=== PATIENT | male | born 1940 | race African-American/Black ===

== ENCOUNTER 2016-07-28 21:17 | Inpatient (IN) | payer MEDICARE, MEDICAID ==
[~2016-07-28] VITALS: Ht 188 cm; Wt 55.8 kg
[2016-07-28] MEDS ORDERED: IPRATROPIUM BROMIDE (0.02%) 0.5MG/2.5ML NEB HHN STA (22:05)
[2016-07-28] MEDS ORDERED: ONDANSETRON HCL 4MG/2ML VIAL IV STA (22:05)
[2016-07-28] MEDS ORDERED: MORPHINE SULFATE 4 MG/ML CPJ (NOT FOR IM USE) IV STA (22:05)
[2016-07-28] MEDS ORDERED: ALBUTEROL (0.083%) 2.5MG/3ML NEB HHN STA (22:05)
[2016-07-28] MEDS ORDERED: METHYLPREDNISOLONE SOD SUCC 125 MG/2 ML VIAL IV STA (22:05)
[2016-07-28 22:41] LABS: BG BASE EXCESS -1.2 mmol/L (-2.0-2.0); BG CARBOXYHEMOGLOBIN 2.9 % (0.5-1.5); BG DEOXYHEMOGLOBIN 6.4 % (0.0-5.0); BG FRACTION INSPIRED OXYGEN 28; BG HCO3 ACT 24.6 mmol/L (22.0-26.0); BG METHEMOGLOBIN 0.3 % (0.0-1.5); BG OXYGEN SATURATION 93.4 % (92.0-98.5); BG OXYHEMOGLOBIN 90.4 % (94.0-97.0); BG PH 7.355 (7.350-7.450); BG PO2 73.2 mmHg (75.0-100.0); BG SAMPLE SITE RIGHT RADIAL; BG TOTAL HEMOGLOBIN 13.7 g/dL (12.0-18.0); BG VENT MODE NASAL CANNULA
[2016-07-28 23:19] LABS: CLARITY URINE CLEAR (CLEAR); COLOR URINE YELLOW (YELLOW); GLUCOSE URINE NEGATIVE (NEGATIVE); KETONES URINE NEGATIVE (NEGATIVE); LEUKOCYTE ESTERASE URINE NEGATIVE (NEGATIVE); NITRITE URINE NEGATIVE (NEGATIVE); OCCULT BLOOD URINE NEGATIVE (NEGATIVE); PROTEIN URINE NEGATIVE (NEGATIVE); SPECIFIC GRAVITY URINE 1.016 (1.005-1.030)
[2016-07-28 23:26] LABS: BASOPHILS % 0.8 % (0.0-2.0); EOSINOPHILS % 6.5 % (0.0-5.0); HEMATOCRIT. 40.7 % (42.0-52.0); HEMOGLOBIN. 13.5 g/dL (14.0-18.0); LYMPHOCYTES % 38.2 % (20.0-50.0); MEAN CORPUSCULAR HEMOGLOBIN 30.9 pg (28.0-32.0); MEAN CORPUSCULAR HGB CONC 33.2 g/dL (31.0-37.0); MEAN CORPUSCULAR VOLUME 93.3 fL (80.0-94.0); MEAN PLATELET VOLUME 7.8 fl (7.4-10.4); NEUTROPHILS % 46.5 % (40.0-76.0); PLATELET 289 x1000/uL (130-400); RED BLOOD CELL COUNT 4.36 mill/uL (4.7-6.1); RED CELL DISTRIBUTION WIDTH 14.7 % (11.6-14.6); WHITE BLOOD COUNT 7.3 x1000/uL (4.5-11.0)
[2016-07-28 23:29] LABS: INR 1.1; PARTIAL THROMBOPLASTIN TIME 30.4 sec (24.0-34.0)
[2016-07-28 23:38] LABS: ALANINE AMINOTRANSFERASE 82 IU/L (13-61); ANION GAP 14; CALCIUM 8.3 mg/dL (8.5-10.1); CARBON DIOXIDE 29 mEq/L (21-32); CHLORIDE 104 mEq/L (98-107); CREATINE KINASE 114 IU/L (39-308); INDEX HEMOLYSI 2 (1-3); INDEX ICTERIC 1 (1-4); INDEX LIPEMIC 1 (1-3); LIPASE 169 IU/L (73-393); NT PRO B-TYPE NATRIURETIC PEP 115 pg/mL (5-125); TROPONIN I 0.15 ng/mL (0.00-0.04); UREA NITROGEN BLOOD 15 mg/dL (7-21); eGFR > 60 mL/min (>60)
[2016-07-29] MEDS ORDERED: ACETAMINOPHEN 325MG TABLET PO PRN
[2016-07-29] MEDS ORDERED: CLONIDINE 0.1MG TABLET PO PRN
[2016-07-29] MEDS ORDERED: ONDANSETRON HCL 4MG/2ML VIAL IV PRN
[2016-07-29] MEDS ORDERED: MAGNESIUM/ALUMINUM HYDROXIDE/SIMETHICONE 30ML UDC PO PRN
[2016-07-29] MEDS ORDERED: IPRATROPIUM/ALBUTEROL 0.5-3(2.5)MG/3ML NEB INH PRN
[2016-07-29 02:35] VITALS: BP 105/76
[2016-07-29] MEDS: HYDROMORPHONE HCL/PF 2MG/ML CPJ IV PRN ×3 (03:54→20:33)
[2016-07-29] MEDS ORDERED: DOCU-138 PO (04:32)
[2016-07-29] MEDS ORDERED: FOLI-43 PO (04:32)
[2016-07-29] MEDS ORDERED: LEVE500T19 PO (04:32)
[2016-07-29] MEDS ORDERED: OMEP20CA10 PO (04:32)
[2016-07-29] MEDS ORDERED: AMLO5TAB4 PO (04:32)
[2016-07-29] MEDS ORDERED: ASPI-864 PO (04:32)
[2016-07-29] MEDS ORDERED: PHEN100C12 PO (04:32)
[2016-07-29] MEDS ORDERED: TRAZ-129 PO (04:32)
[2016-07-29 05:04] VITALS: BP 100/73
[2016-07-29] MEDS: SODIUM CHLORIDE 0.9% INJ 3ML FLUSH IVF SCH ×3 (06:24→22:58)
[2016-07-29 08:00] VITALS: BP 118/78
[2016-07-29] MEDS: ENOXAPARIN 40MG/0.4ML SYR SUBCUT SCH (08:30)
[2016-07-29 12:00] VITALS: BP 103/73
[2016-07-29] MEDS: AMLODIPINE 5MG TABLET PO SCH ×2 (12:00→20:29)
[2016-07-29] MEDS: OMEPRAZOLE 20MG CAPSULE EXTENDED RELEASE PO SCH (12:29)
[2016-07-29] MEDS: FOLIC ACID 1MG TABLET PO SCH (12:29)
[2016-07-29] MEDS: ASPIRIN 81MG EC TABLET PO SCH (12:29)
[2016-07-29] MEDS: PHENYTOIN SODIUM EXTENDED 100MG CAPSULE PO SCH ×2 (12:29→16:09)
[2016-07-29 13:18] LABS: BASOPHILS % 0.6 % (0.0-2.0); EOSINOPHILS % 0.1 % (0.0-5.0); HEMATOCRIT. 35.4 % (42.0-52.0); HEMOGLOBIN. 11.8 g/dL (14.0-18.0); LYMPHOCYTES % 26.4 % (20.0-50.0); MEAN CORPUSCULAR HEMOGLOBIN 31.1 pg (28.0-32.0); MEAN CORPUSCULAR HGB CONC 33.4 g/dL (31.0-37.0); MEAN CORPUSCULAR VOLUME 93.2 fL (80.0-94.0); MEAN PLATELET VOLUME 7.9 fl (7.4-10.4); MONOCYTES % 10.2 % (2.0-8.0); NEUTROPHILS % 62.7 % (40.0-76.0); PLATELET 270 x1000/uL (130-400); RED BLOOD CELL COUNT 3.79 mill/uL (4.7-6.1); RED CELL DISTRIBUTION WIDTH 14.4 % (11.6-14.6)
[2016-07-29 13:26] LABS: CHLORIDE 102 mEq/L (98-107); INDEX HEMOLYSI 1 (1-3); INDEX ICTERIC 1 (1-4); INDEX LIPEMIC 1 (1-3)
[2016-07-29 13:32] LABS: ANION GAP 12; CARBON DIOXIDE 30 mEq/L (21-32); UREA NITROGEN BLOOD 17 mg/dL (7-21); eGFR > 60 mL/min (>60)
[2016-07-29] MEDS: LEVOFLOXACIN 500MG PREMIX 100 ML IV SCH (13:45)
[2016-07-29] MEDS ORDERED: LIDOCAINE HCL/PF 1% 2ML VIAL ONE (14:30)
[2016-07-29 16:00] VITALS: BP 101/70
[2016-07-29] MEDS: TRAZODONE HCL 50MG TABLET PO SCH (16:09)
[2016-07-29] MEDS: DOCUSATE SODIUM 100MG CAPSULE PO SCH (16:09)
[2016-07-29] MEDS: LEVETIRACETAM 500MG TABLET PO SCH (16:09)
[2016-07-29] MEDS: METHYLPREDNISOLONE SOD SUCC 40 MG/ML VIAL IV SCH (18:50)
[2016-07-29] MEDS: DIPHENHYDRAMINE 50MG/ML VIAL IV PRN (18:53)
[2016-07-29 20:00] VITALS: BP 113/73
[2016-07-29] MEDS: IPRATROPIUM/ALBUTEROL 0.5-3(2.5)MG/3ML NEB HHN SCH (20:03)
[2016-07-30] VITALS: BP 101/63
[2016-07-30] MEDS: IPRATROPIUM/ALBUTEROL 0.5-3(2.5)MG/3ML NEB HHN SCH ×6 (00:06→20:38)
[2016-07-30] MEDS: METHYLPREDNISOLONE SOD SUCC 40 MG/ML VIAL IV SCH ×3 (01:56→21:24)
[2016-07-30 04:00] VITALS: BP 104/74
[2016-07-30] MEDS: OMEPRAZOLE 20MG CAPSULE EXTENDED RELEASE PO SCH (06:14)
[2016-07-30] MEDS: SODIUM CHLORIDE 0.9% INJ 3ML FLUSH IVF SCH ×3 (06:15→21:23)
[2016-07-30] MEDS: HYDROMORPHONE HCL/PF 2MG/ML CPJ IV PRN ×3 (06:21→15:44)
[2016-07-30 06:48] LABS: BASOPHILS % 0.2 % (0.0-2.0); HEMATOCRIT. 36.8 % (42.0-52.0); HEMOGLOBIN. 12.3 g/dL (14.0-18.0); LYMPHOCYTES % 11.4 % (20.0-50.0); MEAN CORPUSCULAR HEMOGLOBIN 30.5 pg (28.0-32.0); MEAN CORPUSCULAR HGB CONC 33.3 g/dL (31.0-37.0); MEAN CORPUSCULAR VOLUME 91.7 fL (80.0-94.0); MONOCYTES % 1.7 % (2.0-8.0); NEUTROPHILS % 86.7 % (40.0-76.0); PLATELET 283 x1000/uL (130-400); RED BLOOD CELL COUNT 4.02 mill/uL (4.7-6.1); RED CELL DISTRIBUTION WIDTH 14.3 % (11.6-14.6); WHITE BLOOD COUNT 6.3 x1000/uL (4.5-11.0)
[2016-07-30 08:00] VITALS: BP 100/70
[2016-07-30] MEDS: ASPIRIN 81MG EC TABLET PO SCH (08:17)
[2016-07-30] MEDS: DOCUSATE SODIUM 100MG CAPSULE PO SCH ×2 (08:17→16:08)
[2016-07-30] MEDS: PHENYTOIN SODIUM EXTENDED 100MG CAPSULE PO SCH ×3 (08:17→16:08)
[2016-07-30] MEDS: LEVETIRACETAM 500MG TABLET PO SCH ×2 (08:17→16:08)
[2016-07-30] MEDS: FOLIC ACID 1MG TABLET PO SCH (08:17)
[2016-07-30] MEDS: ENOXAPARIN 40MG/0.4ML SYR SUBCUT SCH (08:17)
[2016-07-30] MEDS: AMLODIPINE 5MG TABLET PO SCH ×2 (08:18→21:00)
[2016-07-30 08:26] LABS: ANION GAP 13; CALCIUM 8.3 mg/dL (8.5-10.1); CARBON DIOXIDE 29 mEq/L (21-32); CHLORIDE 100 mEq/L (98-107); INDEX HEMOLYSI 1 (1-3); INDEX ICTERIC 1 (1-4); INDEX LIPEMIC 1 (1-3); UREA NITROGEN BLOOD 17 mg/dL (7-21); eGFR > 60 mL/min (>60)
[2016-07-30] MEDS: ARFORMOTEROL TARTRATE 15MCG/2ML NEB NEB SCH ×3 (08:30→20:37)
[2016-07-30 11:42] VITALS: BP 96/71
[2016-07-30] MEDS ORDERED: SODIUM CHLORIDE 0.9% 10ML VIAL ONE (13:17)
[2016-07-30] MEDS ORDERED: IOHEXOL-350 100 ML BOTTLE ONE (13:17)
[2016-07-30 13:25] LABS: BG BASE EXCESS 3.1 mmol/L (-2.0-2.0); BG CARBOXYHEMOGLOBIN 1.3 % (0.5-1.5); BG DEOXYHEMOGLOBIN 11.6 % (0.0-5.0); BG HCO3 ACT 28.9 mmol/L (22.0-26.0); BG METHEMOGLOBIN 0.1 % (0.0-1.5); BG OXYGEN SATURATION 88.2 % (92.0-98.5); BG PCO2 49.2 mmHg (35.0-45.0); BG PH 7.387 (7.350-7.450); BG PO2 54.2 mmHg (75.0-100.0); BG SAMPLE SITE RIGHT RADIAL; BG TOTAL HEMOGLOBIN 13.3 g/dL (12.0-18.0); BG VENT MODE ROOM AIR
[2016-07-30] MEDS: LEVOFLOXACIN 500MG PREMIX 100 ML IV SCH (13:35)
[2016-07-30 15:54] VITALS: BP 101/75
[2016-07-30] MEDS: TRAZODONE HCL 50MG TABLET PO SCH (16:08)
[2016-07-30] MEDS: ACETYLCYSTEINE 100MG/ML 10% VIAL 4ML INH SCH ×2 (16:23→20:38)
[2016-07-30 20:00] VITALS: BP 96/64
[2016-07-31] VITALS: BP 108/81
[2016-07-31] MEDS: IPRATROPIUM/ALBUTEROL 0.5-3(2.5)MG/3ML NEB HHN SCH ×7 (00:46→23:48)
[2016-07-31] MEDS: ACETYLCYSTEINE 100MG/ML 10% VIAL 4ML INH SCH ×5 (00:46→19:49)
[2016-07-31 04:00] VITALS: BP 102/68
[2016-07-31] MEDS: SODIUM CHLORIDE 0.9% INJ 3ML FLUSH IVF SCH ×3 (06:13→21:17)
[2016-07-31 06:45] LABS: BASOPHILS % 0.4 % (0.0-2.0); EOSINOPHILS % 0.1 % (0.0-5.0); HEMATOCRIT. 34.9 % (42.0-52.0); HEMOGLOBIN. 11.7 g/dL (14.0-18.0); LYMPHOCYTES % 20.3 % (20.0-50.0); MEAN CORPUSCULAR HEMOGLOBIN 31.4 pg (28.0-32.0); MEAN CORPUSCULAR HGB CONC 33.5 g/dL (31.0-37.0); MEAN CORPUSCULAR VOLUME 93.6 fL (80.0-94.0); MEAN PLATELET VOLUME 7.9 fl (7.4-10.4); MONOCYTES % 7.6 % (2.0-8.0); NEUTROPHILS % 71.6 % (40.0-76.0); PLATELET 262 x1000/uL (130-400); RED BLOOD CELL COUNT 3.73 mill/uL (4.7-6.1); RED CELL DISTRIBUTION WIDTH 14.2 % (11.6-14.6); WHITE BLOOD COUNT 7.6 x1000/uL (4.5-11.0)
[2016-07-31 07:25] LABS: ANION GAP 11; CALCIUM 8.4 mg/dL (8.5-10.1); CARBON DIOXIDE 32 mEq/L (21-32); CHLORIDE 98 mEq/L (98-107); INDEX HEMOLYSI 1 (1-3); INDEX ICTERIC 1 (1-4); INDEX LIPEMIC 1 (1-3); UREA NITROGEN BLOOD 19 mg/dL (7-21); eGFR > 60 mL/min (>60)
[2016-07-31 08:00] VITALS: BP 102/72
[2016-07-31] MEDS: LEVETIRACETAM 500MG TABLET PO SCH ×2 (08:11→17:33)
[2016-07-31] MEDS: FOLIC ACID 1MG TABLET PO SCH (08:11)
[2016-07-31] MEDS: PHENYTOIN SODIUM EXTENDED 100MG CAPSULE PO SCH ×3 (08:11→17:33)
[2016-07-31] MEDS: ASPIRIN 81MG EC TABLET PO SCH (08:11)
[2016-07-31] MEDS: FAMOTIDINE 20MG TABLET PO SCH ×2 (08:11→21:16)
[2016-07-31] MEDS: METHYLPREDNISOLONE SOD SUCC 40 MG/ML VIAL IV SCH ×2 (08:12→21:16)
[2016-07-31] MEDS: DOCUSATE SODIUM 100MG CAPSULE PO SCH ×2 (08:13→17:33)
[2016-07-31] MEDS: AMLODIPINE 5MG TABLET PO SCH ×3 (08:13→21:17)
[2016-07-31] MEDS: ENOXAPARIN 40MG/0.4ML SYR SUBCUT SCH (08:13)
[2016-07-31] MEDS: ARFORMOTEROL TARTRATE 15MCG/2ML NEB NEB SCH ×2 (09:33→19:50)
[2016-07-31] MEDS: LIDOCAINE 5% PATCH TOP SCH (10:12)
[2016-07-31] MEDS: HYDROMORPHONE HCL/PF 2MG/ML CPJ IV PRN ×3 (10:49→19:53)
[2016-07-31 12:00] VITALS: BP 96/67
[2016-07-31] MEDS: LEVOFLOXACIN 500MG PREMIX 100 ML IV SCH (14:01)
[2016-07-31 16:30] VITALS: BP 106/79
[2016-07-31] MEDS: TRAZODONE HCL 50MG TABLET PO SCH (17:33)
[2016-07-31 20:00] VITALS: BP 107/78
[2016-08-01] VITALS: BP 102/74
[2016-08-01] MEDS: HYDROMORPHONE HCL/PF 2MG/ML CPJ IV PRN ×4 (02:16→21:57)
[2016-08-01 04:00] VITALS: BP 104/70
[2016-08-01] MEDS: IPRATROPIUM/ALBUTEROL 0.5-3(2.5)MG/3ML NEB HHN SCH ×5 (04:04→20:48)
[2016-08-01] MEDS: ACETYLCYSTEINE 100MG/ML 10% VIAL 4ML INH SCH ×4 (04:04→20:48)
[2016-08-01] MEDS: SODIUM CHLORIDE 0.9% INJ 3ML FLUSH IVF SCH ×3 (05:10→21:47)
[2016-08-01] MEDS: DIPHENHYDRAMINE 50MG/ML VIAL IV PRN (05:23)
[2016-08-01 05:47] LABS: ANION GAP 11; CALCIUM 8.4 mg/dL (8.5-10.1); CARBON DIOXIDE 34 mEq/L (21-32); CHLORIDE 97 mEq/L (98-107); INDEX HEMOLYSI 1 (1-3); INDEX ICTERIC 1 (1-4); INDEX LIPEMIC 1 (1-3); eGFR > 60 mL/min (>60)
[2016-08-01 05:52] LABS: UREA NITROGEN BLOOD 19 mg/dL (7-21)
[2016-08-01 06:32] LABS: BASOPHILS % 0.4 % (0.0-2.0); EOSINOPHILS % 0.1 % (0.0-5.0); HEMATOCRIT. 35.1 % (42.0-52.0); HEMOGLOBIN. 11.7 g/dL (14.0-18.0); LYMPHOCYTES % 17.9 % (20.0-50.0); MEAN CORPUSCULAR HEMOGLOBIN 30.7 pg (28.0-32.0); MEAN CORPUSCULAR HGB CONC 33.2 g/dL (31.0-37.0); MEAN CORPUSCULAR VOLUME 92.4 fL (80.0-94.0); MONOCYTES % 6.7 % (2.0-8.0); NEUTROPHILS % 74.9 % (40.0-76.0); PLATELET 275 x1000/uL (130-400); RED CELL DISTRIBUTION WIDTH 14.1 % (11.6-14.6); WHITE BLOOD COUNT 6.9 x1000/uL (4.5-11.0)
[2016-08-01 07:29] VITALS: BP 102/74
[2016-08-01] MEDS: METHYLPREDNISOLONE SOD SUCC 40 MG/ML VIAL IV SCH (08:35)
[2016-08-01] MEDS: FAMOTIDINE 20MG TABLET PO SCH ×2 (08:36→21:47)
[2016-08-01] MEDS: FOLIC ACID 1MG TABLET PO SCH (08:36)
[2016-08-01] MEDS: ASPIRIN 81MG EC TABLET PO SCH (08:36)
[2016-08-01] MEDS: LEVETIRACETAM 500MG TABLET PO SCH ×2 (08:36→16:21)
[2016-08-01] MEDS: PHENYTOIN SODIUM EXTENDED 100MG CAPSULE PO SCH ×3 (08:36→16:21)
[2016-08-01] MEDS: DOCUSATE SODIUM 100MG CAPSULE PO SCH ×2 (08:37→16:21)
[2016-08-01] MEDS: ENOXAPARIN 40MG/0.4ML SYR SUBCUT SCH (08:38)
[2016-08-01] MEDS: AMLODIPINE 5MG TABLET PO SCH ×2 (08:38→21:00)
[2016-08-01] MEDS: LIDOCAINE 5% PATCH TOP SCH ×2 (08:39→09:05)
[2016-08-01] MEDS: ARFORMOTEROL TARTRATE 15MCG/2ML NEB NEB SCH ×2 (10:06→20:48)
[2016-08-01 11:38] VITALS: BP 100/69
[2016-08-01] MEDS: LEVOFLOXACIN 500MG PREMIX 100 ML IV SCH (14:00)
[2016-08-01 16:00] VITALS: BP 101/77
[2016-08-01] MEDS: TRAZODONE HCL 50MG TABLET PO SCH (16:22)
[2016-08-01 20:00] VITALS: BP 104/69
[2016-08-02] VITALS: BP 117/81
[2016-08-02] MEDS: ACETYLCYSTEINE 100MG/ML 10% VIAL 4ML INH SCH ×2 (00:42→04:57)
[2016-08-02] MEDS: IPRATROPIUM/ALBUTEROL 0.5-3(2.5)MG/3ML NEB HHN SCH ×3 (00:42→08:00)
[2016-08-02 04:00] VITALS: BP 111/64
[2016-08-02] MEDS: SODIUM CHLORIDE 0.9% INJ 3ML FLUSH IVF SCH ×2 (05:29→14:20)
[2016-08-02 07:11] LABS: BASOPHILS % 0.4 % (0.0-2.0); EOSINOPHILS % 2.6 % (0.0-5.0); HEMATOCRIT. 36.9 % (42.0-52.0); HEMOGLOBIN. 12.2 g/dL (14.0-18.0); LYMPHOCYTES % 27.5 % (20.0-50.0); MEAN CORPUSCULAR HEMOGLOBIN 30.7 pg (28.0-32.0); MEAN CORPUSCULAR HGB CONC 33.1 g/dL (31.0-37.0); MEAN PLATELET VOLUME 7.6 fl (7.4-10.4); MONOCYTES % 11.2 % (2.0-8.0); NEUTROPHILS % 58.3 % (40.0-76.0); PLATELET 278 x1000/uL (130-400); RED BLOOD CELL COUNT 3.97 mill/uL (4.7-6.1); RED CELL DISTRIBUTION WIDTH 14.2 % (11.6-14.6)
[2016-08-02 08:00] VITALS: BP 95/71
[2016-08-02 08:20] LABS: ANION GAP 9; CALCIUM 8.9 mg/dL (8.5-10.1); CARBON DIOXIDE 34 mEq/L (21-32); CHLORIDE 97 mEq/L (98-107); INDEX HEMOLYSI 1 (1-3); INDEX ICTERIC 1 (1-4); INDEX LIPEMIC 1 (1-3); UREA NITROGEN BLOOD 27 mg/dL (7-21); eGFR > 60 mL/min (>60)
[2016-08-02] MEDS: LIDOCAINE 5% PATCH TOP SCH (08:46)
[2016-08-02] MEDS: FAMOTIDINE 20MG TABLET PO SCH (08:47)
[2016-08-02] MEDS: LEVETIRACETAM 500MG TABLET PO SCH ×2 (08:47→16:56)
[2016-08-02] MEDS: FOLIC ACID 1MG TABLET PO SCH (08:47)
[2016-08-02] MEDS: ASPIRIN 81MG EC TABLET PO SCH (08:47)
[2016-08-02] MEDS: PHENYTOIN SODIUM EXTENDED 100MG CAPSULE PO SCH ×3 (08:47→16:53)
[2016-08-02] MEDS: ENOXAPARIN 40MG/0.4ML SYR SUBCUT SCH (08:48)
[2016-08-02] MEDS: DOCUSATE SODIUM 100MG CAPSULE PO SCH ×2 (08:48→16:54)
[2016-08-02] MEDS: AMLODIPINE 5MG TABLET PO SCH (08:55)
[2016-08-02] MEDS ORDERED: PREDNISONE 20MG TABLET PO SCH (09:00)
[2016-08-02] MEDS ORDERED: LACTULOSE 20G/30ML UDC PO PRN (10:30)
[2016-08-02 12:00] VITALS: BP 99/76
[2016-08-02] MEDS: LEVOFLOXACIN 500MG PREMIX 100 ML IV SCH (14:20)
[2016-08-02 15:21] VITALS: BP_SYST 102; BP_SYST 97; BP_DIAS 70; BP_DIAS 77
[2016-08-02 16:00] VITALS: BP 97/77
[2016-08-02] MEDS: TRAZODONE HCL 50MG TABLET PO SCH (16:54)
[2016-08-03] MEDS ORDERED: LEVOFLOXACIN 500MG TABLET PO SCH (11:00)
== END 2016-08-02 20:20 | DRG 177 ==
LOC: ER 21:24 → 8WST 23:56 → SUPCPDRO 07-29
PROVIDERS: ADMIT Internal Medicine Nephrology; ATTEND Internal Medicine Critical Care Medicine
DX: J15.1 Pneumonia due to Pseudomonas (principal); I26.99 Other pulmonary embolism without acute cor pulmonale; J96.21 Acute and chronic respiratory failure with hypoxia; J44.1 Chronic obstructive pulmonary disease with (acute) exacerbation; E44.0 Moderate protein-calorie malnutrition; J44.0 Chronic obstructive pulmonary disease with (acute) lower respiratory infection; M48.54XA Collapsed vertebra, not elsewhere classified, thoracic region, initial encounter for fracture; Z68.1 Body mass index [BMI] 19.9 or less, adult; F17.210 Nicotine dependence, cigarettes, uncomplicated; I10 Essential (primary) hypertension; E11.9 Type 2 diabetes mellitus without complications; G40.909 Epilepsy, unspecified, not intractable, without status epilepticus; Z82.49 Family history of ischemic heart disease and other diseases of the circulatory system; Z99.81 Dependence on supplemental oxygen; Z79.899 Other long term (current) drug therapy
CPT/HCPCS: 36415; 36600; 71010; 71275; 72146; 80048; 80053; 81003; 82375; 82550; 82805; 82962; 83605; 83690; 83880; 84484; 85025; 85379; 85610; 85730; 87040; 87070; 87077; 87186; 93005; 93970; 94640; 94644; 94664; 96374; 96375; 97116; 97162; 97760; 99285; A4216; C1893; J1170; J1200; J1650; J1956; J2270; J2405; J2920; J2930; J3490; J7040; J7512; J7608; J7611; J7620; Q9967

== ENCOUNTER 2017-01-14 20:02 | Inpatient (IN) | payer MEDICARE, MEDICAID ==
[2017-01-14] VITALS: BP 111/72
[~2017-01-14] VITALS: Ht 188 cm; Wt 53.1 kg
[~2017-01-14 20:02] MED LIST: AMLO5TAB4 PO; ASPI-864 PO; DOCU-138 PO; FOLI-43 PO; LEVE500T19 PO; OMEP20CA10 PO; PHEN100C12 PO; TRAZ-129 PO
[2017-01-14] MEDS ORDERED: METHYLPREDNISOLONE SOD SUCC 125 MG/2 ML VIAL IV STA (20:12)
[2017-01-14] MEDS ORDERED: IPRATROPIUM BROMIDE (0.02%) 0.5MG/2.5ML NEB HHN STA (20:12)
[2017-01-14] MEDS ORDERED: ALBUTEROL (0.083%) 2.5MG/3ML NEB HHN STA (20:12)
[2017-01-14] MEDS ORDERED: MAGNESIUM 2 G PREMIX 50 ML IV ONE (20:15)
[2017-01-14] MEDS ORDERED: SODIUM CHLORIDE 0.9% 1,000 ML IV ONE (20:27)
[2017-01-14] MEDS ORDERED: LEVOFLOXACIN 500MG PREMIX 100 ML IV ONE (20:30)
[2017-01-14 20:57] LABS: BASOPHILS % 1.3 % (0.0-2.0); EOSINOPHILS % 2.3 % (0.0-5.0); HEMATOCRIT. 47.7 % (42.0-52.0); HEMOGLOBIN. 15.8 g/dL (14.0-18.0); LYMPHOCYTES % 26.7 % (20.0-50.0); MEAN CORPUSCULAR HEMOGLOBIN 30.5 pg (28.0-32.0); MEAN CORPUSCULAR VOLUME 91.8 fL (80.0-94.0); MEAN PLATELET VOLUME 7.9 fl (7.4-10.4); MONOCYTES % 8.8 % (2.0-8.0); NEUTROPHILS % 60.9 % (40.0-76.0); PLATELET 276 x1000/uL (130-400); RED BLOOD CELL COUNT 5.19 mill/uL (4.7-6.1); RED CELL DISTRIBUTION WIDTH 14.7 % (11.6-14.6)
[2017-01-14 21:04] LABS: INR 1.1; PARTIAL THROMBOPLASTIN TIME 29.7 sec (23.4-31.0); PROTHROMBIN TIME 11.6 sec (9.4-11.6)
[2017-01-14 21:12] LABS: CARBON DIOXIDE 33 mEq/L (21-32); CHLORIDE 100 mEq/L (98-107); TROPONIN I 0.15 ng/mL (0.00-0.04)
[2017-01-14] MEDS ORDERED: ASPIRIN 81MG TABLET PO ONE (21:30)
[2017-01-14 22:07] LABS: CLARITY URINE CLEAR (CLEAR); COLOR URINE YELLOW (YELLOW); GLUCOSE URINE NEGATIVE (NEGATIVE); KETONES URINE TRACE (NEGATIVE); LEUKOCYTE ESTERASE URINE NEGATIVE (NEGATIVE); NITRITE URINE NEGATIVE (NEGATIVE); OCCULT BLOOD URINE NEGATIVE (NEGATIVE); PH URINE 5.5 (4.5-8.0); PROTEIN URINE NEGATIVE (NEGATIVE); SPECIFIC GRAVITY URINE 1.018 (1.005-1.030)
[2017-01-14 23:00] VITALS: BP 126/78
[2017-01-15] VITALS (7 sets, daily range): BP systolic 96–114; BP diastolic 64–77
[2017-01-15] MEDS ORDERED: ONDANSETRON HCL 4MG/2ML VIAL IV PRN (00:15)
[2017-01-15] MEDS ORDERED: LORAZEPAM 2MG/ML CPJ IV PRN (00:15)
[2017-01-15] MEDS ORDERED: TRAMADOL 50MG TABLET PO PRN (00:15)
[2017-01-15] MEDS ORDERED: CLONIDINE 0.1MG TABLET PO PRN (00:15)
[2017-01-15] MEDS ORDERED: ACETAMINOPHEN 325MG TABLET PO PRN (00:15)
[2017-01-15] MEDS ORDERED: DOCUSATE SODIUM 100MG CAPSULE PO PRN (00:15)
[2017-01-15] MEDS ORDERED: DEXTROSE 50% WATER 50ML SYRINGE IV PRN (01:00)
[2017-01-15] MEDS: IPRATROPIUM/ALBUTEROL 0.5-3(2.5)MG/3ML NEB INH SCH ×4 (05:07→21:08)
[2017-01-15] MEDS: BLOOD SUGAR DIAGNOSTIC STRIP TEST SCH ×4 (06:24→20:59)
[2017-01-15] MEDS: SODIUM CHLORIDE 0.45% 1,000 ML IV SCH ×2 (06:24→20:46)
[2017-01-15] MEDS: INSULIN LISPRO 100 UNITS/ML SUBCUT SCH ×4 (06:28→20:44)
[2017-01-15] MEDS ORDERED: DIPHENHYDRAMINE 25MG CAPSULE PO PRN (09:15)
[2017-01-15 09:34] LABS: *AMPHETAMINES SCREEN URINE NEGATIVE (NEGATIVE); *BARBITURATES SCREEN URINE NEGATIVE (NEGATIVE); *BENZODIAZEPINES SCREEN URINE NEGATIVE (NEGATIVE); *COCAINE SCREEN URINE NEGATIVE (NEGATIVE); CANNABINOID URINE SCREEN NEGATIVE (NEGATIVE); METHADONE URINE SCREEN NEGATIVE (NEGATIVE); OPIATES URINE SCREEN PRESUMTIVE POSITIVE (NEGATIVE); PHENCYCLIDINE URINE SCREEN NEGATIVE (NEGATIVE)
[2017-01-15 09:39] LABS: CARBON DIOXIDE 27 mEq/L (21-32); CHLORIDE 103 mEq/L (98-107)
[2017-01-15] MEDS: FOLIC ACID 1MG TABLET PO SCH (10:00)
[2017-01-15] MEDS: METHYLPREDNISOLONE SOD SUCC 40 MG/ML VIAL IV SCH ×2 (10:01→17:20)
[2017-01-15] MEDS: ASPIRIN 81MG EC TABLET PO SCH (10:01)
[2017-01-15] MEDS: LEVETIRACETAM 500MG TABLET PO SCH ×2 (10:01→17:20)
[2017-01-15] MEDS: MORPHINE SULFATE 4 MG/ML CPJ (NOT FOR IM USE) IV PRN ×2 (10:02→16:16)
[2017-01-15] MEDS: ENOXAPARIN 40MG/0.4ML SYR SUBCUT SCH (10:03)
[2017-01-15 10:19] LABS: BASOPHILS % 0.6 % (0.0-2.0); HEMATOCRIT. 43.8 % (42.0-52.0); HEMOGLOBIN. 14.5 g/dL (14.0-18.0); LYMPHOCYTES % 18.2 % (20.0-50.0); MEAN CORPUSCULAR HEMOGLOBIN 30.3 pg (28.0-32.0); MEAN CORPUSCULAR VOLUME 91.6 fL (80.0-94.0); MEAN PLATELET VOLUME 8.2 fl (7.4-10.4); MONOCYTES % 4.5 % (2.0-8.0); NEUTROPHILS % 76.7 % (40.0-76.0); PLATELET 272 x1000/uL (130-400); RED BLOOD CELL COUNT 4.78 mill/uL (4.7-6.1); RED CELL DISTRIBUTION WIDTH 15.1 % (11.6-14.6)
[2017-01-15] MEDS ORDERED: PHENYTOIN SODIUM EXTENDED 100MG CAPSULE PO SCH (21:00)
[2017-01-15] MEDS ORDERED: LEVOFLOXACIN 500MG PREMIX 100 ML IV SCH (21:00)
[2017-01-15] MEDS ORDERED: LEVOFLOXACIN 250MG PREMIX 50 ML IV SCH (21:00)
[2017-01-15] MEDS: BUDESONIDE 0.5MG/2ML NEB HHN SCH (21:09)
[2017-01-16] VITALS: BP 105/75
[2017-01-16] MEDS: METHYLPREDNISOLONE SOD SUCC 40 MG/ML VIAL IV SCH ×2 (01:40→09:05)
[2017-01-16] MEDS: IPRATROPIUM/ALBUTEROL 0.5-3(2.5)MG/3ML NEB INH SCH ×5 (02:08→20:10)
[2017-01-16 04:00] VITALS: BP 106/79
[2017-01-16] MEDS: BLOOD SUGAR DIAGNOSTIC STRIP TEST SCH ×4 (06:21→21:06)
[2017-01-16] MEDS: INSULIN LISPRO 100 UNITS/ML SUBCUT SCH ×4 (06:21→21:00)
[2017-01-16 07:20] LABS: BASOPHILS % 0.3 % (0.0-2.0); HEMOGLOBIN. 13.5 g/dL (14.0-18.0); LYMPHOCYTES % 17.9 % (20.0-50.0); MEAN CORPUSCULAR HEMOGLOBIN 30.1 pg (28.0-32.0); MEAN CORPUSCULAR VOLUME 91.1 fL (80.0-94.0); MEAN PLATELET VOLUME 8.4 fl (7.4-10.4); MONOCYTES % 2.5 % (2.0-8.0); NEUTROPHILS % 79.3 % (40.0-76.0); PLATELET 236 x1000/uL (130-400); RED CELL DISTRIBUTION WIDTH 14.4 % (11.6-14.6)
[2017-01-16 07:35] LABS: CARBON DIOXIDE 30 mEq/L (21-32); CHLORIDE 102 mEq/L (98-107)
[2017-01-16] MEDS ORDERED: LIDOCAINE HCL/PF 1% 2ML VIAL ONE (07:55)
[2017-01-16 08:00] VITALS: BP 113/74
[2017-01-16] MEDS ORDERED: SODIUM POLYSTYRENE SULFONATE 15 G/60 ML BOT PO SCH (08:00)
[2017-01-16] MEDS ORDERED: IPRATROPIUM/ALBUTEROL 0.5-3(2.5)MG/3ML NEB HHN PRN (08:00)
[2017-01-16] MEDS: BUDESONIDE 0.5MG/2ML NEB HHN SCH ×2 (08:19→20:10)
[2017-01-16 08:25] LABS: BG CARBOXYHEMOGLOBIN 1.5 % (0.5-1.5); BG DEOXYHEMOGLOBIN 19.2 % (0.0-5.0); BG HCO3 ACT 27.4 mmol/L (22.0-26.0); BG METHEMOGLOBIN 0.3 % (0.0-1.5); BG OXYGEN SATURATION 80.4 % (92.0-98.5); BG PCO2 55.5 mmHg (35.0-45.0); BG PH 7.311 (7.350-7.450); BG PO2 45.7 mmHg (75.0-100.0); BG SAMPLE SITE RIGHT RADIAL; BG VENT MODE ROOM AIR
[2017-01-16] MEDS: ASPIRIN 81MG EC TABLET PO SCH (09:05)
[2017-01-16] MEDS: FOLIC ACID 1MG TABLET PO SCH (09:05)
[2017-01-16] MEDS: LEVETIRACETAM 500MG TABLET PO SCH ×2 (09:05→17:51)
[2017-01-16] MEDS: ENOXAPARIN 40MG/0.4ML SYR SUBCUT SCH (09:06)
[2017-01-16] MEDS: MORPHINE SULFATE 4 MG/ML CPJ (NOT FOR IM USE) IV PRN ×2 (09:06→22:08)
[2017-01-16] MEDS: SODIUM CHLORIDE 0.45% 1,000 ML IV SCH ×2 (10:21→22:12)
[2017-01-16 12:29] VITALS: BP 109/71
[2017-01-16] MEDS ORDERED: NICOTINE 21MG PATCH TD SCH (15:30)
[2017-01-16] MEDS: THEOPHYLLINE ANHYDROUS 80 MG/15 ML 120ML PO SCH ×2 (16:27→21:08)
[2017-01-16 16:35] VITALS: BP 114/79
[2017-01-16] MEDS: PREDNISONE 20MG TABLET PO SCH (17:51)
[2017-01-16 20:00] VITALS: BP 107/75
[2017-01-17] VITALS: BP 117/79
[2017-01-17] MEDS: IPRATROPIUM/ALBUTEROL 0.5-3(2.5)MG/3ML NEB INH SCH ×4 (01:53→20:35)
[2017-01-17 04:00] VITALS: BP 113/78
[2017-01-17 05:35] LABS: BASOPHILS % 0.4 % (0.0-2.0); EOSINOPHILS % 0.1 % (0.0-5.0); HEMATOCRIT. 39.9 % (42.0-52.0); HEMOGLOBIN. 13.3 g/dL (14.0-18.0); LYMPHOCYTES % 15.3 % (20.0-50.0); MEAN CORPUSCULAR HEMOGLOBIN 30.4 pg (28.0-32.0); MEAN PLATELET VOLUME 8.4 fl (7.4-10.4); MONOCYTES % 4.2 % (2.0-8.0); PLATELET 223 x1000/uL (130-400); RED BLOOD CELL COUNT 4.38 mill/uL (4.7-6.1); RED CELL DISTRIBUTION WIDTH 14.5 % (11.6-14.6)
[2017-01-17] MEDS: THEOPHYLLINE ANHYDROUS 80 MG/15 ML 120ML PO SCH ×3 (06:15→21:31)
[2017-01-17] MEDS: BLOOD SUGAR DIAGNOSTIC STRIP TEST SCH ×4 (06:15→21:00)
[2017-01-17] MEDS: INSULIN LISPRO 100 UNITS/ML SUBCUT SCH ×4 (06:18→21:00)
[2017-01-17] MEDS: PREDNISONE 20MG TABLET PO SCH ×2 (06:18→16:51)
[2017-01-17 06:39] LABS: CARBON DIOXIDE 30 mEq/L (21-32); CHLORIDE 102 mEq/L (98-107)
[2017-01-17 08:00] VITALS: BP 125/87
[2017-01-17] MEDS: LEVETIRACETAM 500MG TABLET PO SCH ×2 (08:27→16:51)
[2017-01-17] MEDS: FOLIC ACID 1MG TABLET PO SCH (08:28)
[2017-01-17] MEDS: ASPIRIN 81MG EC TABLET PO SCH (08:28)
[2017-01-17] MEDS: ENOXAPARIN 40MG/0.4ML SYR SUBCUT SCH (08:28)
[2017-01-17] MEDS: NICOTINE 21MG PATCH TD SCH (08:28)
[2017-01-17] MEDS: MORPHINE SULFATE 4 MG/ML CPJ (NOT FOR IM USE) IV PRN ×2 (08:29→18:14)
[2017-01-17] MEDS: BUDESONIDE 0.5MG/2ML NEB HHN SCH ×2 (08:53→20:35)
[2017-01-17 16:00] VITALS: BP 116/79
[2017-01-17 20:00] VITALS: BP 128/87
[2017-01-17] MEDS: AMLODIPINE 5MG TABLET PO SCH (21:30)
[2017-01-18] VITALS: BP 119/82
[2017-01-18] MEDS: IPRATROPIUM/ALBUTEROL 0.5-3(2.5)MG/3ML NEB INH SCH ×3 (01:19→14:22)
[2017-01-18 04:00] VITALS: BP 128/87
[2017-01-18] MEDS: THEOPHYLLINE ANHYDROUS 80 MG/15 ML 120ML PO SCH ×2 (06:05→14:21)
[2017-01-18] MEDS: INSULIN LISPRO 100 UNITS/ML SUBCUT SCH ×2 (06:10→12:15)
[2017-01-18] MEDS: BLOOD SUGAR DIAGNOSTIC STRIP TEST SCH ×2 (06:10→12:40)
[2017-01-18 07:55] LABS: BASOPHILS % 0.7 % (0.0-2.0); EOSINOPHILS % 0.2 % (0.0-5.0); HEMATOCRIT. 40.4 % (42.0-52.0); HEMOGLOBIN. 13.5 g/dL (14.0-18.0); LYMPHOCYTES % 28.7 % (20.0-50.0); MEAN CORPUSCULAR HEMOGLOBIN 30.5 pg (28.0-32.0); MEAN CORPUSCULAR VOLUME 91.1 fL (80.0-94.0); MONOCYTES % 6.6 % (2.0-8.0); NEUTROPHILS % 63.8 % (40.0-76.0); PLATELET 223 x1000/uL (130-400); RED BLOOD CELL COUNT 4.43 mill/uL (4.7-6.1); RED CELL DISTRIBUTION WIDTH 14.5 % (11.6-14.6)
[2017-01-18 08:00] VITALS: BP 122/80
[2017-01-18] MEDS: BUDESONIDE 0.5MG/2ML NEB HHN SCH (08:01)
[2017-01-18 08:34] LABS: CHLORIDE 101 mEq/L (98-107)
[2017-01-18 08:46] LABS: CARBON DIOXIDE 29 mEq/L (21-32)
[2017-01-18] MEDS: PREDNISONE 20MG TABLET PO SCH (09:14)
[2017-01-18] MEDS: ASPIRIN 81MG EC TABLET PO SCH (09:14)
[2017-01-18] MEDS: FOLIC ACID 1MG TABLET PO SCH (09:14)
[2017-01-18] MEDS: LEVETIRACETAM 500MG TABLET PO SCH (09:14)
[2017-01-18] MEDS: AMLODIPINE 5MG TABLET PO SCH (09:15)
[2017-01-18] MEDS: ENOXAPARIN 40MG/0.4ML SYR SUBCUT SCH (09:15)
[2017-01-18] MEDS: NICOTINE 21MG PATCH TD SCH (09:16)
[2017-01-18] MEDS: MORPHINE SULFATE 4 MG/ML CPJ (NOT FOR IM USE) IV PRN (11:04)
[2017-01-18 12:00] VITALS: BP 122/82
[2017-01-18 14:10] VITALS: BP 122/80
[2017-01-18] MEDS ORDERED: TERBUTALINE SULFATE 1MG/ML VIAL SUBCUT SCH (15:15)
== END 2017-01-18 15:30 | disposition home or self-care (01) | DRG 189 ==
LOC: ER 20:02 → 5WST 21:30 → EDBEDREQ 21:33 → EDBEDREQTM 21:33 → ENRESERV 21:43
PROVIDERS: ADMIT Internal Medicine Nephrology; ATTEND Internal Medicine Nephrology
DX: J96.01 Acute respiratory failure with hypoxia (principal); J44.1 Chronic obstructive pulmonary disease with (acute) exacerbation; E11.9 Type 2 diabetes mellitus without complications; Z99.81 Dependence on supplemental oxygen; I10 Essential (primary) hypertension; G40.909 Epilepsy, unspecified, not intractable, without status epilepticus; T42.0X5A Adverse effect of hydantoin derivatives, initial encounter; M48.00 Spinal stenosis, site unspecified; G89.29 Other chronic pain; F17.210 Nicotine dependence, cigarettes, uncomplicated; R07.89 Other chest pain; I35.1 Nonrheumatic aortic (valve) insufficiency; Z87.440 Personal history of urinary (tract) infections; Z82.49 Family history of ischemic heart disease and other diseases of the circulatory system; Z88.5 Allergy status to narcotic agent; Z79.82 Long term (current) use of aspirin; Z79.899 Other long term (current) drug therapy
CPT/HCPCS: 36415; 36600; 71010; 71250; 78580; 80048; 80053; 80185; 80305; 81003; 82375; 82805; 82962; 83605; 83880; 84484; 85025; 85610; 85730; 87040; 87070; 87086; 92610; 93005; 93306; 93970; 94640; 94664; 96365; 96375; 97162; 99291; J1650; J1956; J2060; J2270; J2920; J2930; J3475; J3490; J7030; J7512; J7611; J7620; J7626; Q0163

== ENCOUNTER 2018-06-10 14:57 | Inpatient (IN) | payer MEDICARE, MEDICAID ==
[~2018-06-10] VITALS: Ht 177.8 cm; Wt 64.9 kg
[2018-06-10] MEDS: IPRATROPIUM/ALBUTEROL 0.5-3(2.5)MG/3ML NEB INH SCH ×2 (01:25→17:15)
[~2018-06-10 14:57] MED LIST changes: -TRAZ-129 PO; +TRAZ-212 PO
[2018-06-10] MEDS ORDERED: METHYLPREDNISOLONE SOD SUCC 125 MG/2 ML VIAL IV STA (15:43)
[2018-06-10] MEDS ORDERED: IPRATROPIUM BROMIDE (0.02%) 0.5MG/2.5ML NEB HHN STA (15:43)
[2018-06-10] MEDS: ALBUTEROL (0.083%) 2.5MG/3ML NEB HHN SCH ×3 (15:50→16:52)
[2018-06-10 16:14] LABS: BG CARBOXYHEMOGLOBIN 2.8 % (0.5-1.5); BG DEOXYHEMOGLOBIN 3.3 % (0.0-5.0); BG FRACTION INSPIRED OXYGEN 36; BG HCO3 ACT 34.5 mmol/L (22.0-26.0); BG METHEMOGLOBIN 0.1 % (0.0-1.5); BG OXYGEN SATURATION 96.6 % (92.0-98.5); BG OXYHEMOGLOBIN 93.8 % (94.0-97.0); BG PCO2 77.3 mmHg (35.0-45.0); BG PH 7.267 (7.350-7.450); BG PO2 94.8 mmHg (75.0-100.0); BG SAMPLE SITE RIGHT BRACHIAL; BG TOTAL HEMOGLOBIN 13.1 g/dL (12.0-18.0); BG VENT MODE NASAL CANNULA
[2018-06-10 16:48] LABS: BASOPHILS % 0.5 % (0.0-2.0); EOSINOPHILS % 4.1 % (0.0-5.0); HEMATOCRIT. 42.3 % (42.0-52.0); HEMOGLOBIN. 13.6 g/dL (14.0-18.0); LYMPHOCYTES % 18.8 % (20.0-50.0); MEAN CORPUSCULAR HEMOGLOBIN 30.5 pg (28.0-32.0); MEAN CORPUSCULAR VOLUME 94.9 fL (80.0-94.0); MEAN PLATELET VOLUME 9.1 fl (7.4-10.4); MONOCYTES % 6.9 % (2.0-8.0); NEUTROPHILS % 69.7 % (40.0-76.0); PLATELET 187 x1000/uL (130-400); RED BLOOD CELL COUNT 4.46 mill/uL (4.7-6.1); RED CELL DISTRIBUTION WIDTH 15.5 % (11.6-14.6)
[2018-06-10 16:50] LABS: CHLORIDE 100 mEq/L (98-107)
[2018-06-10] MEDS ORDERED: LEVOFLOXACIN 750MG PREMIX 150 ML IV ONE (17:00)
[2018-06-10] MEDS ORDERED: ONDANSETRON HCL 4MG/2ML INJ IV PRN (17:15)
[2018-06-10] MEDS ORDERED: ACETAMINOPHEN 325MG TABLET PO PRN (17:15)
[2018-06-10] MEDS ORDERED: CLONIDINE 0.1MG TABLET PO PRN (17:15)
[2018-06-10] MEDS ORDERED: DOCUSATE SODIUM 100MG CAPSULE PO PRN (17:15)
[2018-06-10] MEDS ORDERED: SODIUM CHLORIDE 0.9% 250 ML IV STA (19:58)
[2018-06-10 20:34] LABS: CLARITY URINE CLEAR (CLEAR); COLOR URINE YELLOW (YELLOW); KETONES URINE TRACE (NEGATIVE); LEUKOCYTE ESTERASE URINE NEGATIVE (NEGATIVE); NITRITE URINE NEGATIVE (NEGATIVE); OCCULT BLOOD URINE NEGATIVE (NEGATIVE); PROTEIN URINE NEGATIVE (NEGATIVE); SPECIFIC GRAVITY URINE 1.025 (1.005-1.030)
[2018-06-10] MEDS ORDERED: AMLODIPINE 5MG TABLET PO SCH (21:00)
[2018-06-10] MEDS ORDERED: LEVETIRACETAM 500MG/5ML CUP PO SCH (22:35)
[2018-06-10] MEDS ORDERED: METHYLPREDNISOLONE SOD SUCC 125 MG/2 ML VIAL IV NR (22:45)
[2018-06-10] MEDS ORDERED: TRAZODONE HCL 50MG TABLET PO NR (22:45)
[2018-06-10] MEDS ORDERED: PHENYTOIN SODIUM EXTENDED 100MG CAPSULE PO NR (22:45)
[2018-06-11 05:40] LABS: BASOPHILS % 0.1 % (0.0-2.0); HEMATOCRIT. 36.3 % (42.0-52.0); HEMOGLOBIN. 11.9 g/dL (14.0-18.0); LYMPHOCYTES % 14.1 % (20.0-50.0); MEAN CORPUSCULAR HEMOGLOBIN 30.8 pg (28.0-32.0); MEAN CORPUSCULAR VOLUME 94.1 fL (80.0-94.0); MEAN PLATELET VOLUME 8.2 fl (7.4-10.4); MONOCYTES % 0.5 % (2.0-8.0); NEUTROPHILS % 85.3 % (40.0-76.0); PLATELET 184 x1000/uL (130-400); RED BLOOD CELL COUNT 3.85 mill/uL (4.7-6.1)
[2018-06-11 05:46] LABS: CHLORIDE 101 mEq/L (98-107)
[2018-06-11 05:56] LABS: LDL CHOLESTEROL 46 mg/dL (5-100)
[2018-06-11 05:57] LABS: HDL CHOLESTEROL 56 mg/dL (40-59)
[2018-06-11] MEDS: IPRATROPIUM/ALBUTEROL 0.5-3(2.5)MG/3ML NEB INH SCH ×3 (07:41→21:22)
[2018-06-11] MEDS ORDERED: IPRATROPIUM/ALBUTEROL 0.5-3(2.5)MG/3ML NEB ONE (07:46)
[2018-06-11 09:30] VITALS: BP 108/69
[2018-06-11 10:00] VITALS: BP 108/69
[2018-06-11] MEDS: AMLODIPINE 5MG TABLET PO SCH ×2 (10:00→21:00)
[2018-06-11] MEDS ORDERED: METHYLPREDNISOLONE SOD SUCC 125 MG/2 ML VIAL IV SCH (10:00)
[2018-06-11] MEDS ORDERED: BRIM5DRO6 EACHEYE (10:22)
[2018-06-11] MEDS ORDERED: LATA2.5D2 EACHEYE (10:22)
[2018-06-11] MEDS ORDERED: BACL-141 MT (10:22)
[2018-06-11] MEDS: LEVETIRACETAM 500MG/5ML CUP PO SCH ×2 (10:57→20:50)
[2018-06-11] MEDS: ENOXAPARIN 40MG/0.4ML SYR SUBCUT SCH (10:58)
[2018-06-11] MEDS ORDERED: HYDROCODONE/ACETAMINOPHEN 10/325MG TABLET PO PRN (11:45)
[2018-06-11 12:00] VITALS: BP 100/62
[2018-06-11] MEDS ORDERED: IPRATROPIUM/ALBUTEROL 0.5-3(2.5)MG/3ML NEB HHN PRN (13:00)
[2018-06-11] MEDS ORDERED: DEXTROSE 50% WATER 50ML SYRINGE IV PRN (14:45)
[2018-06-11 16:00] VITALS: BP 105/66
[2018-06-11] MEDS: BLOOD SUGAR DIAGNOSTIC STRIP TEST SCH ×2 (16:45→20:51)
[2018-06-11] MEDS: INSULIN LISPRO 100 UNITS/ML SUBCUT SCH ×2 (17:15→21:00)
[2018-06-11] MEDS: HYDROCODONE/ACETAMINOPHEN 5/325MG TABLET PO PRN (17:48)
[2018-06-11 20:00] VITALS: BP 104/65
[2018-06-11] MEDS: PHENYTOIN SODIUM EXTENDED 100MG CAPSULE PO SCH (20:51)
[2018-06-11] MEDS: TRAZODONE HCL 50MG TABLET PO SCH (20:51)
[2018-06-11] MEDS: BUDESONIDE 0.5MG/2ML NEB HHN SCH (21:22)
[2018-06-12] VITALS: BP_SYST 106; BP_SYST 98; BP_DIAS 58; BP_DIAS 66
[2018-06-12] MEDS: HYDROCODONE/ACETAMINOPHEN 5/325MG TABLET PO PRN ×4 (00:36→21:43)
[2018-06-12] MEDS: IPRATROPIUM/ALBUTEROL 0.5-3(2.5)MG/3ML NEB INH SCH ×4 (02:26→21:36)
[2018-06-12 04:00] VITALS: BP 100/61
[2018-06-12 06:23] LABS: BASOPHILS % 0.1 % (0.0-2.0); HEMATOCRIT. 33.5 % (42.0-52.0); HEMOGLOBIN. 10.7 g/dL (14.0-18.0); LYMPHOCYTES % 10.2 % (20.0-50.0); MEAN CORPUSCULAR HEMOGLOBIN 30.2 pg (28.0-32.0); MEAN CORPUSCULAR VOLUME 94.1 fL (80.0-94.0); MEAN PLATELET VOLUME 8.8 fl (7.4-10.4); MONOCYTES % 8.5 % (2.0-8.0); NEUTROPHILS % 81.2 % (40.0-76.0); PLATELET 196 x1000/uL (130-400); RED BLOOD CELL COUNT 3.56 mill/uL (4.7-6.1); RED CELL DISTRIBUTION WIDTH 15.1 % (11.6-14.6)
[2018-06-12] MEDS: BLOOD SUGAR DIAGNOSTIC STRIP TEST SCH ×4 (06:34→21:44)
[2018-06-12] MEDS: INSULIN LISPRO 100 UNITS/ML SUBCUT SCH ×4 (06:34→21:00)
[2018-06-12 06:39] LABS: CHLORIDE 102 mEq/L (98-107)
[2018-06-12 08:00] VITALS: BP 113/70
[2018-06-12] MEDS: LEVETIRACETAM 500MG/5ML CUP PO SCH ×2 (08:34→21:44)
[2018-06-12] MEDS: AMLODIPINE 5MG TABLET PO SCH ×2 (08:35→21:44)
[2018-06-12] MEDS: ENOXAPARIN 40MG/0.4ML SYR SUBCUT SCH (08:35)
[2018-06-12] MEDS: BUDESONIDE 0.5MG/2ML NEB HHN SCH ×2 (08:59→21:36)
[2018-06-12 12:00] VITALS: BP 106/70
[2018-06-12] MEDS: THEOPHYLLINE ANHYDROUS 80 MG/15 ML PO SCH ×2 (15:58→21:44)
[2018-06-12 16:00] VITALS: BP 99/60
[2018-06-12 20:00] VITALS: BP 115/77
[2018-06-12] MEDS: PHENYTOIN SODIUM EXTENDED 100MG CAPSULE PO SCH (21:43)
[2018-06-12] MEDS: TRAZODONE HCL 50MG TABLET PO SCH (21:44)
[2018-06-13] VITALS: BP 102/66
[2018-06-13] MEDS: IPRATROPIUM/ALBUTEROL 0.5-3(2.5)MG/3ML NEB INH SCH ×3 (02:37→20:54)
[2018-06-13 04:00] VITALS: BP 113/68
[2018-06-13] MEDS: BLOOD SUGAR DIAGNOSTIC STRIP TEST SCH ×4 (06:12→21:30)
[2018-06-13] MEDS: THEOPHYLLINE ANHYDROUS 80 MG/15 ML PO SCH ×3 (06:15→23:02)
[2018-06-13] MEDS: INSULIN LISPRO 100 UNITS/ML SUBCUT SCH ×4 (06:19→21:30)
[2018-06-13] MEDS: BUDESONIDE 0.5MG/2ML NEB HHN SCH ×2 (07:48→20:54)
[2018-06-13 08:00] VITALS: BP 113/74
[2018-06-13] MEDS: AMLODIPINE 5MG TABLET PO SCH ×2 (08:31→22:51)
[2018-06-13] MEDS: HYDROCODONE/ACETAMINOPHEN 5/325MG TABLET PO PRN ×3 (08:31→22:15)
[2018-06-13] MEDS: LEVETIRACETAM 500MG/5ML CUP PO SCH ×2 (08:31→22:48)
[2018-06-13] MEDS: ENOXAPARIN 40MG/0.4ML SYR SUBCUT SCH (08:32)
[2018-06-13 12:00] VITALS: BP 124/80
[2018-06-13 16:00] VITALS: BP 110/74
[2018-06-13 20:00] VITALS: BP 115/79
[2018-06-13] MEDS: TRAZODONE HCL 50MG TABLET PO SCH (22:49)
[2018-06-13] MEDS: PHENYTOIN SODIUM EXTENDED 100MG CAPSULE PO SCH (22:49)
[2018-06-14] VITALS: BP 93/67
[2018-06-14] MEDS: IPRATROPIUM/ALBUTEROL 0.5-3(2.5)MG/3ML NEB INH SCH ×4 (01:15→20:43)
[2018-06-14 04:00] VITALS: BP 98/65
[2018-06-14 05:59] LABS: BASOPHILS % 0.2 % (0.0-2.0); EOSINOPHILS % 5.1 % (0.0-5.0); HEMATOCRIT. 34.7 % (42.0-52.0); HEMOGLOBIN. 11.4 g/dL (14.0-18.0); LYMPHOCYTES % 26.6 % (20.0-50.0); MEAN CORPUSCULAR HEMOGLOBIN 30.3 pg (28.0-32.0); MEAN CORPUSCULAR VOLUME 92.3 fL (80.0-94.0); MEAN PLATELET VOLUME 8.4 fl (7.4-10.4); MONOCYTES % 9.8 % (2.0-8.0); NEUTROPHILS % 58.3 % (40.0-76.0); PLATELET 230 x1000/uL (130-400); RED BLOOD CELL COUNT 3.77 mill/uL (4.7-6.1)
[2018-06-14 06:15] LABS: CHLORIDE 98 mEq/L (98-107)
[2018-06-14] MEDS: THEOPHYLLINE ANHYDROUS 80 MG/15 ML PO SCH ×2 (06:24→15:00)
[2018-06-14] MEDS: HYDROCODONE/ACETAMINOPHEN 5/325MG TABLET PO PRN (06:31)
[2018-06-14] MEDS: BLOOD SUGAR DIAGNOSTIC STRIP TEST SCH ×4 (06:43→20:50)
[2018-06-14] MEDS: INSULIN LISPRO 100 UNITS/ML SUBCUT SCH ×4 (07:15→20:51)
[2018-06-14 08:00] VITALS: BP 103/70
[2018-06-14] MEDS: BUDESONIDE 0.5MG/2ML NEB HHN SCH (08:04)
[2018-06-14] MEDS: LEVETIRACETAM 500MG/5ML CUP PO SCH ×2 (08:55→20:52)
[2018-06-14] MEDS: AMLODIPINE 5MG TABLET PO SCH ×2 (08:56→20:50)
[2018-06-14] MEDS: ENOXAPARIN 40MG/0.4ML SYR SUBCUT SCH (08:56)
[2018-06-14 12:00] VITALS: BP 98/63
[2018-06-14 16:00] VITALS: BP 110/52
[2018-06-14 19:52] VITALS: BP 130/60
[2018-06-14] MEDS: PHENYTOIN SODIUM EXTENDED 100MG CAPSULE PO SCH (20:52)
[2018-06-14] MEDS: TRAZODONE HCL 50MG TABLET PO SCH (20:52)
== END 2018-06-14 19:18 | DRG 189 ==
LOC: ER 15:35 → 5WST 17:09 → EDBEDREQ 17:13 → EDBEDREQTM 06-11 04:38 → EDBEDREQSVC 06-11 04:38 → EDBEDREQDT 06-11 04:38 → ENRESERV 06-11 07:21
PROVIDERS: ADMIT Internal Medicine Nephrology; ATTEND Internal Medicine Nephrology
PROC: 5A09357 Assistance with Respiratory Ventilation, Less than 24 Consecutive Hours, Continuous Positive Airway Pressure (ICD-10-PCS; principal; 2018-06-10)
DX: J96.00 Acute respiratory failure, unspecified whether with hypoxia or hypercapnia (principal); E44.0 Moderate protein-calorie malnutrition; J44.1 Chronic obstructive pulmonary disease with (acute) exacerbation; I10 Essential (primary) hypertension; G40.909 Epilepsy, unspecified, not intractable, without status epilepticus; M54.9 Dorsalgia, unspecified; G89.29 Other chronic pain; F41.9 Anxiety disorder, unspecified; R74.8 Abnormal levels of other serum enzymes; D64.9 Anemia, unspecified; E11.9 Type 2 diabetes mellitus without complications; T38.0X5A Adverse effect of glucocorticoids and synthetic analogues, initial encounter; D72.829 Elevated white blood cell count, unspecified; Z99.81 Dependence on supplemental oxygen; Z79.82 Long term (current) use of aspirin; Z79.899 Other long term (current) drug therapy; Z88.8 Allergy status to other drugs, medicaments and biological substances; Z88.5 Allergy status to narcotic agent; Z87.891 Personal history of nicotine dependence; Y92.238 Other place in hospital as the place of occurrence of the external cause; Z68.20 Body mass index [BMI] 20.0-20.9, adult
CPT/HCPCS: 36415; 36600; 71045; 80048; 80061; 82375; 82805; 82962; 83880; 84484; 87070; 87804; 93005; 93306; 94640; 96365; 96366; 96375; 99291; J1650; J1956; J2930; J7040; J7611; J7620; J7626

== ENCOUNTER 2018-08-14 12:25 | Inpatient (IN) | payer MEDICARE, MEDICAID ==
[~2018-08-14] VITALS: Ht 188 cm; Wt 50.8 kg
[~2018-08-14 12:25] MED LIST changes: +BACL-141 MT; +BRIM5DRO6 EACHEYE; +LATA2.5D2 EACHEYE
[2018-08-14] MEDS ORDERED: ALBUTEROL (0.083%) 2.5MG/3ML NEB HHN STA (12:40)
[2018-08-14] MEDS ORDERED: METHYLPREDNISOLONE SOD SUCC 125 MG/2 ML VIAL IV STA (12:40)
[2018-08-14] MEDS ORDERED: MAGNESIUM 2 G PREMIX 50 ML IV ONE (12:45)
[2018-08-14 12:56] LABS: BASOPHILS % 0.8 % (0.0-2.0); EOSINOPHILS % 3.5 % (0.0-5.0); HEMATOCRIT. 46.1 % (42.0-52.0); HEMOGLOBIN. 15.1 g/dL (14.0-18.0); LYMPHOCYTES % 22.9 % (20.0-50.0); MEAN CORPUSCULAR HEMOGLOBIN 30.7 pg (28.0-32.0); MEAN CORPUSCULAR VOLUME 93.8 fL (80.0-94.0); MEAN PLATELET VOLUME 7.4 fl (7.4-10.4); MONOCYTES % 11.2 % (2.0-8.0); NEUTROPHILS % 61.6 % (40.0-76.0); PLATELET 316 x1000/uL (130-400); RED BLOOD CELL COUNT 4.92 mill/uL (4.7-6.1); RED CELL DISTRIBUTION WIDTH 14.3 % (11.6-14.6)
[2018-08-14 13:02] LABS: CHLORIDE 100 mEq/L (98-107)
[2018-08-14] MEDS ORDERED: FUROSEMIDE 20MG/2ML VIAL IVP ONE (13:30)
[2018-08-14] MEDS ORDERED: ASPIRIN 81MG TABLET PO ONE (13:30)
[2018-08-14 13:56] LABS: INR 1.1; PROTHROMBIN TIME 10.9 sec (9.6-11.0)
[2018-08-14] MEDS ORDERED: IPRATROPIUM/ALBUTEROL 0.5-3(2.5)MG/3ML NEB HHN PRN (14:15)
[2018-08-14 14:29] LABS: BG BASE EXCESS -0.3 mmol/L (-2.0-2.0); BG BILEVEL POS AIRWAY PRESSURE 15/5; BG CARBOXYHEMOGLOBIN 1.6 % (0.5-1.5); BG DEOXYHEMOGLOBIN 3.4 % (0.0-5.0); BG FRACTION INSPIRED OXYGEN 40; BG HCO3 ACT 26.8 mmol/L (22.0-26.0); BG METHEMOGLOBIN 0.3 % (0.0-1.5); BG OXYGEN SATURATION 96.5 % (92.0-98.5); BG OXYHEMOGLOBIN 94.7 % (94.0-97.0); BG PCO2 53.6 mmHg (35.0-45.0); BG PH 7.317 (7.350-7.450); BG SAMPLE SITE RIGHT RADIAL; BG TOTAL HEMOGLOBIN 14.2 g/dL (12.0-18.0); BG VENT MODE MASK - BIPAP
[2018-08-14] MEDS ORDERED: CLONIDINE 0.1MG TABLET PO PRN (14:30)
[2018-08-14] MEDS ORDERED: ACETAMINOPHEN 325MG TABLET PO PRN (14:30)
[2018-08-14] MEDS ORDERED: ONDANSETRON HCL 4MG/2ML INJ IV PRN (14:30)
[2018-08-14] MEDS ORDERED: IPRATROPIUM/ALBUTEROL 0.5-3(2.5)MG/3ML NEB HHN SCH (16:00)
[2018-08-14 21:30] VITALS: BP 99/65
[2018-08-14 21:57] VITALS: BP 99/65
[2018-08-14] MEDS: BACLOFEN 20MG TABLET PO SCH (22:49)
[2018-08-14] MEDS: PHENYTOIN SODIUM EXTENDED 100MG CAPSULE PO SCH (22:49)
[2018-08-14] MEDS: TRAZODONE HCL 50MG TABLET PO SCH (22:49)
[2018-08-14] MEDS: LEVETIRACETAM 500MG TABLET PO SCH (22:50)
[2018-08-14] MEDS: METHYLPREDNISOLONE SOD SUCC 40 MG/ML VIAL IV SCH (22:50)
[2018-08-14] MEDS: ENOXAPARIN 40MG/0.4ML SYR SUBCUT SCH (22:50)
[2018-08-14] MEDS: OMEPRAZOLE 20MG CAPSULE EXTENDED RELEASE PO SCH (22:52)
[2018-08-14] MEDS ORDERED: AZITHROMYCIN 500 MG in DEXT 5% WATER 250 ML IV SCH (23:00)
[2018-08-15] VITALS: BP 100/57
[2018-08-15] MEDS: IPRATROPIUM/ALBUTEROL 0.5-3(2.5)MG/3ML NEB HHN SCH ×5 (02:09→20:14)
[2018-08-15] MEDS: BUDESONIDE 0.5MG/2ML NEB HHN SCH ×3 (02:10→20:15)
[2018-08-15 06:16] LABS: BASOPHILS % 0.1 % (0.0-2.0); HEMATOCRIT. 40.1 % (42.0-52.0); HEMOGLOBIN. 13.2 g/dL (14.0-18.0); LYMPHOCYTES % 12.4 % (20.0-50.0); MEAN CORPUSCULAR HEMOGLOBIN 30.4 pg (28.0-32.0); MEAN CORPUSCULAR VOLUME 92.5 fL (80.0-94.0); MEAN PLATELET VOLUME 7.8 fl (7.4-10.4); NEUTROPHILS % 76.5 % (40.0-76.0); PLATELET 321 x1000/uL (130-400); RED BLOOD CELL COUNT 4.34 mill/uL (4.7-6.1); RED CELL DISTRIBUTION WIDTH 13.8 % (11.6-14.6)
[2018-08-15 06:46] LABS: CHLORIDE 104 mEq/L (98-107)
[2018-08-15] MEDS: OMEPRAZOLE 20MG CAPSULE EXTENDED RELEASE PO SCH ×2 (07:03→21:07)
[2018-08-15] MEDS: METHYLPREDNISOLONE SOD SUCC 40 MG/ML VIAL IV SCH ×3 (07:04→21:08)
[2018-08-15] MEDS: BACLOFEN 20MG TABLET PO SCH ×3 (07:04→21:07)
[2018-08-15 07:11] LABS: HDL CHOLESTEROL 47 mg/dL (40-59)
[2018-08-15 07:13] LABS: LDL CHOLESTEROL 53 mg/dL (5-100)
[2018-08-15 08:00] VITALS: BP 83/55
[2018-08-15] MEDS: LEVETIRACETAM 500MG TABLET PO SCH ×2 (08:53→21:07)
[2018-08-15] MEDS: DOCUSATE SODIUM 250MG CAPSULE PO SCH (08:53)
[2018-08-15] MEDS: ASPIRIN 81MG TABLET PO SCH (08:53)
[2018-08-15] MEDS: FOLIC ACID 1MG TABLET PO SCH (08:55)
[2018-08-15] MEDS: TRAMADOL 50MG TABLET PO PRN (08:55)
[2018-08-15] MEDS ORDERED: AMLODIPINE 5MG TABLET PO SCH (09:00)
[2018-08-15] MEDS: MIDODRINE HCL 5MG TABLET PO SCH ×3 (11:36→17:17)
[2018-08-15 12:00] VITALS: BP_SYST 100; BP_SYST 90; BP_SYST 91; BP_DIAS 60; BP_DIAS 61; BP_DIAS 70
[2018-08-15] MEDS ORDERED: SODIUM CHLORIDE 0.9% 250 ML IV ONE (12:30)
[2018-08-15] MEDS: SODIUM CHLORIDE 0.9% 1,000 ML IV SCH (12:42)
[2018-08-15 16:00] VITALS: BP 98/63
[2018-08-15] MEDS: ACETYLCYSTEINE 100MG/ML 10% VIAL 4ML INH SCH (16:16)
[2018-08-15 20:00] VITALS: BP 97/68
[2018-08-15] MEDS: PHENYTOIN SODIUM EXTENDED 100MG CAPSULE PO SCH (21:07)
[2018-08-15] MEDS: TRAZODONE HCL 50MG TABLET PO SCH (21:07)
[2018-08-15] MEDS: ENOXAPARIN 40MG/0.4ML SYR SUBCUT SCH (21:08)
[2018-08-15] MEDS: AZITHROMYCIN 500 MG in DEXT 5% WATER 250 ML IV SCH (21:08)
[2018-08-16] VITALS: BP 103/69
[2018-08-16] MEDS: IPRATROPIUM/ALBUTEROL 0.5-3(2.5)MG/3ML NEB HHN SCH ×6 (01:03→20:48)
[2018-08-16] MEDS: ACETYLCYSTEINE 100MG/ML 10% VIAL 4ML INH SCH ×3 (01:04→15:57)
[2018-08-16 04:00] VITALS: BP 102/67
[2018-08-16] MEDS: SODIUM CHLORIDE 0.9% 1,000 ML IV SCH ×2 (05:43→21:44)
[2018-08-16] MEDS: METHYLPREDNISOLONE SOD SUCC 40 MG/ML VIAL IV SCH ×3 (05:43→21:32)
[2018-08-16] MEDS: BACLOFEN 20MG TABLET PO SCH ×3 (05:43→21:33)
[2018-08-16] MEDS: OMEPRAZOLE 20MG CAPSULE EXTENDED RELEASE PO SCH ×2 (05:43→21:32)
[2018-08-16 06:13] LABS: CLARITY URINE CLEAR (CLEAR); COLOR URINE YELLOW (YELLOW); KETONES URINE NEGATIVE (NEGATIVE); LEUKOCYTE ESTERASE URINE NEGATIVE (NEGATIVE); NITRITE URINE NEGATIVE (NEGATIVE); OCCULT BLOOD URINE NEGATIVE (NEGATIVE); PH URINE 5.5 (4.5-8.0); PROTEIN URINE NEGATIVE (NEGATIVE); SPECIFIC GRAVITY URINE 1.022 (1.005-1.030); UROBILINOGEN URINE 0.2 E.U./dL (0.2-1.0)
[2018-08-16 06:26] LABS: *AMPHETAMINES SCREEN URINE NEGATIVE (NEGATIVE); *BARBITURATES SCREEN URINE NEGATIVE (NEGATIVE); *BENZODIAZEPINES SCREEN URINE NEGATIVE (NEGATIVE); *COCAINE SCREEN URINE NEGATIVE (NEGATIVE); METHADONE URINE SCREEN NEGATIVE (NEGATIVE)
[2018-08-16 06:27] LABS: CANNABINOID URINE SCREEN NEGATIVE (NEGATIVE); OPIATES URINE SCREEN NEGATIVE (NEGATIVE); PHENCYCLIDINE URINE SCREEN NEGATIVE (NEGATIVE)
[2018-08-16 08:00] VITALS: BP 93/59
[2018-08-16] MEDS: FOLIC ACID 1MG TABLET PO SCH (09:15)
[2018-08-16] MEDS: DOCUSATE SODIUM 250MG CAPSULE PO SCH (09:15)
[2018-08-16] MEDS: LEVETIRACETAM 500MG TABLET PO SCH ×2 (09:16→21:33)
[2018-08-16] MEDS: ASPIRIN 81MG TABLET PO SCH (09:16)
[2018-08-16] MEDS: MIDODRINE HCL 5MG TABLET PO SCH ×3 (09:16→17:13)
[2018-08-16] MEDS: TRAMADOL 50MG TABLET PO PRN (09:28)
[2018-08-16 12:00] VITALS: BP 101/63
[2018-08-16] MEDS: BUDESONIDE 0.5MG/2ML NEB HHN SCH ×2 (15:57→20:49)
[2018-08-16 16:00] VITALS: BP 116/76
[2018-08-16] MEDS: AZITHROMYCIN 500 MG in DEXT 5% WATER 250 ML IV SCH (21:32)
[2018-08-16] MEDS: PHENYTOIN SODIUM EXTENDED 100MG CAPSULE PO SCH (21:33)
[2018-08-16] MEDS: TRAZODONE HCL 50MG TABLET PO SCH (21:33)
[2018-08-16] MEDS: ENOXAPARIN 40MG/0.4ML SYR SUBCUT SCH (21:34)
[2018-08-17] VITALS: BP 133/77
[2018-08-17] MEDS: ACETYLCYSTEINE 100MG/ML 10% VIAL 4ML INH SCH ×3 (01:08→16:19)
[2018-08-17] MEDS: IPRATROPIUM/ALBUTEROL 0.5-3(2.5)MG/3ML NEB HHN SCH ×5 (01:08→16:22)
[2018-08-17 04:00] VITALS: BP 110/68
[2018-08-17] MEDS: BACLOFEN 20MG TABLET PO SCH ×2 (06:10→13:38)
[2018-08-17] MEDS: METHYLPREDNISOLONE SOD SUCC 40 MG/ML VIAL IV SCH (06:10)
[2018-08-17] MEDS: OMEPRAZOLE 20MG CAPSULE EXTENDED RELEASE PO SCH (06:10)
[2018-08-17 08:00] VITALS: BP 107/70
[2018-08-17] MEDS: BUDESONIDE 0.5MG/2ML NEB HHN SCH (08:43)
[2018-08-17] MEDS: MIDODRINE HCL 5MG TABLET PO SCH ×3 (09:04→17:08)
[2018-08-17] MEDS: ASPIRIN 81MG TABLET PO SCH (09:04)
[2018-08-17] MEDS: FOLIC ACID 1MG TABLET PO SCH (09:04)
[2018-08-17] MEDS: DOCUSATE SODIUM 250MG CAPSULE PO SCH (09:04)
[2018-08-17] MEDS: LEVETIRACETAM 500MG TABLET PO SCH (09:05)
[2018-08-17] MEDS: PREDNISONE 20MG TABLET PO SCH ×2 (09:27→17:07)
[2018-08-17 12:00] VITALS: BP 106/55
[2018-08-17 16:00] VITALS: BP 112/71
[2018-08-17 17:10] VITALS: BP 112/71
[2018-08-17] MEDS ORDERED: AZITHROMYCIN 500 MG TABLET PO SCH (21:00)
== END 2018-08-17 18:17 | DRG 189 ==
LOC: ER 12:25 → EDBEDREQ 14:01 → EDBEDREQTM 14:01 → EDBEDREQSVC 17:58 → ENRESERV 20:51 → 5WST 21:27
PROVIDERS: ADMIT Internal Medicine Nephrology; ATTEND Internal Medicine Nephrology
PROC: 5A09357 Assistance with Respiratory Ventilation, Less than 24 Consecutive Hours, Continuous Positive Airway Pressure (ICD-10-PCS; principal; 2018-08-14)
DX: J96.20 Acute and chronic respiratory failure, unspecified whether with hypoxia or hypercapnia (principal); I42.9 Cardiomyopathy, unspecified; J44.1 Chronic obstructive pulmonary disease with (acute) exacerbation; I95.9 Hypotension, unspecified; G40.909 Epilepsy, unspecified, not intractable, without status epilepticus; J43.9 Emphysema, unspecified; D64.9 Anemia, unspecified; I27.20 Pulmonary hypertension, unspecified; Z99.81 Dependence on supplemental oxygen; I27.29 Other secondary pulmonary hypertension; F41.9 Anxiety disorder, unspecified; H40.9 Unspecified glaucoma; I10 Essential (primary) hypertension; Z79.82 Long term (current) use of aspirin; Z87.891 Personal history of nicotine dependence; Z88.5 Allergy status to narcotic agent; Z88.8 Allergy status to other drugs, medicaments and biological substances
CPT/HCPCS: 36415; 36600; 71045; 80061; 80305; 82375; 82805; 83880; 84443; 84484; 85379; 93005; 93306; 93970; 94640; 94660; 96365; 96375; 97166; 99291; J0456; J1650; J2920; J2930; J3475; J7030; J7050; J7060; J7512; J7608; J7611; J7620; J7626

== ENCOUNTER 2018-08-31 15:05 | Inpatient (IN) | payer MEDICARE, MEDICAID ==
[~2018-08-31] VITALS: Ht 188 cm; Wt 59.5 kg
[2018-08-31] MEDS ORDERED: ALBUTEROL (0.083%) 2.5MG/3ML NEB HHN STA (16:23)
[2018-08-31] MEDS ORDERED: IPRATROPIUM BROMIDE (0.02%) 0.5MG/2.5ML NEB HHN STA (16:23)
[2018-08-31] MEDS ORDERED: METHYLPREDNISOLONE SOD SUCC 125 MG/2 ML VIAL IV STA (16:23)
[2018-08-31 16:41] LABS: BASOPHILS % 1.1 % (0.0-2.0); HEMATOCRIT. 50.4 % (42.0-52.0); HEMOGLOBIN. 16.1 g/dL (14.0-18.0); LYMPHOCYTES % 13.1 % (20.0-50.0); MEAN CORPUSCULAR HEMOGLOBIN 30.2 pg (28.0-32.0); MEAN CORPUSCULAR VOLUME 94.6 fL (80.0-94.0); MEAN PLATELET VOLUME 8.7 fl (7.4-10.4); NEUTROPHILS % 78.8 % (40.0-76.0); PLATELET 225 x1000/uL (130-400); RED BLOOD CELL COUNT 5.33 mill/uL (4.7-6.1); RED CELL DISTRIBUTION WIDTH 15.2 % (11.6-14.6)
[2018-08-31 16:44] LABS: CHLORIDE 97 mEq/L (98-107)
[2018-08-31] MEDS ORDERED: LEVOFLOXACIN 750MG PREMIX 150 ML IV ONE (18:30)
[2018-08-31 23:30] VITALS: BP 93/60
[2018-08-31 23:45] VITALS: BP 86/63
[2018-08-31] MEDS ORDERED: DIPHENHYDRAMINE 50MG/ML VIAL IV PRN (23:45)
[2018-08-31] MEDS ORDERED: ACETAMINOPHEN 325MG TABLET PO PRN (23:45)
[2018-08-31] MEDS ORDERED: ONDANSETRON HCL 4MG/2ML INJ IV PRN (23:45)
[2018-08-31] MEDS ORDERED: CLONIDINE 0.1MG TABLET PO PRN (23:45)
[2018-08-31] MEDS ORDERED: IPRATROPIUM/ALBUTEROL 0.5-3(2.5)MG/3ML NEB INH PRN (23:45)
[2018-08-31] MEDS ORDERED: DOCUSATE SODIUM 100MG CAPSULE PO PRN (23:45)
[2018-08-31] MEDS ORDERED: IPRATROPIUM/ALBUTEROL 0.5-3(2.5)MG/3ML NEB HHN PRN (23:45)
[2018-08-31 23:50] VITALS: BP 92/55
[2018-09-01] VITALS (15 sets, daily range): BP systolic 93–158; BP diastolic 56–89
[2018-09-01] MEDS: METHYLPREDNISOLONE SOD SUCC 40 MG/ML VIAL IV SCH ×2 (00:40→08:42)
[2018-09-01 02:11] LABS: BG BASE EXCESS 8.7 mmol/L (-2.0-2.0); BG CARBOXYHEMOGLOBIN 2.3 % (0.5-1.5); BG DEOXYHEMOGLOBIN 20.8 % (0.0-5.0); BG FRACTION INSPIRED OXYGEN 32; BG HCO3 ACT 35.5 mmol/L (22.0-26.0); BG METHEMOGLOBIN 0.1 % (0.0-1.5); BG OXYGEN SATURATION 78.7 % (92.0-98.5); BG OXYHEMOGLOBIN 76.8 % (94.0-97.0); BG PCO2 57.8 mmHg (35.0-45.0); BG PH 7.406 (7.350-7.450); BG PO2 38.7 mmHg (75.0-100.0); BG SAMPLE SITE RIGHT BRACHIAL; BG TOTAL HEMOGLOBIN 14.2 g/dL (12.0-18.0); BG VENT MODE NASAL CANNULA
[2018-09-01 06:18] LABS: HEMATOCRIT. 40.8 % (42.0-52.0); HEMOGLOBIN. 13.4 g/dL (14.0-18.0); MEAN CORPUSCULAR HEMOGLOBIN 30.6 pg (28.0-32.0); MEAN CORPUSCULAR VOLUME 93.2 fL (80.0-94.0); MEAN PLATELET VOLUME 8.3 fl (7.4-10.4); PLATELET 192 x1000/uL (130-400); RED BLOOD CELL COUNT 4.38 mill/uL (4.7-6.1); RED CELL DISTRIBUTION WIDTH 14.6 % (11.6-14.6)
[2018-09-01 06:21] LABS: CHLORIDE 100 mEq/L (98-107)
[2018-09-01 06:35] LABS: CREATINE KINASE 114 IU/L (39-308)
[2018-09-01 06:41] LABS: CREATINE KINASE MB FRACTION 3.3 ng/mL (0.5-3.6)
[2018-09-01] MEDS: OMEPRAZOLE 20MG CAPSULE EXTENDED RELEASE PO SCH (06:54)
[2018-09-01 07:29] LABS: BG BASE EXCESS 7.8 mmol/L (-2.0-2.0); BG CARBOXYHEMOGLOBIN 2.1 % (0.5-1.5); BG DEOXYHEMOGLOBIN 2.3 % (0.0-5.0); BG HCO3 ACT 35.3 mmol/L (22.0-26.0); BG METHEMOGLOBIN 0.1 % (0.0-1.5); BG OXYGEN SATURATION 97.6 % (92.0-98.5); BG OXYHEMOGLOBIN 95.5 % (94.0-97.0); BG PCO2 62.4 mmHg (35.0-45.0); BG PH 7.371 (7.350-7.450); BG SAMPLE SITE RIGHT RADIAL; BG TOTAL HEMOGLOBIN 13.9 g/dL (12.0-18.0); BG VENT MODE MASK - NRB
[2018-09-01] MEDS ORDERED: AZITHROMYCIN 500 MG TABLET PO SCH (08:00)
[2018-09-01] MEDS ORDERED: IPRATROPIUM/ALBUTEROL 0.5-3(2.5)MG/3ML NEB HHN SCH (08:30)
[2018-09-01] MEDS ORDERED: IPRATROPIUM/ALBUTEROL 0.5-3(2.5)MG/3ML NEB HHN PRN (08:30)
[2018-09-01] MEDS: ENOXAPARIN 40MG/0.4ML SYR SUBCUT SCH (08:44)
[2018-09-01] MEDS: TRAMADOL 50MG TABLET PO PRN (08:47)
[2018-09-01] MEDS: ASPIRIN 81MG TABLET PO SCH (08:47)
[2018-09-01] MEDS: LEVETIRACETAM 500MG TABLET PO SCH ×2 (08:47→21:17)
[2018-09-01] MEDS: MIDODRINE HCL 2.5MG TABLET PO SCH ×3 (08:47→18:05)
[2018-09-01] MEDS: IPRATROPIUM/ALBUTEROL 0.5-3(2.5)MG/3ML NEB HHN SCH ×4 (08:55→20:12)
[2018-09-01] MEDS ORDERED: TERBUTALINE SULFATE 1MG/ML VIAL SUBCUT NR (12:30)
[2018-09-01] MEDS: METHYLPREDNISOLONE SOD SUCC 125 MG/2 ML VIAL IV SCH ×2 (13:19→18:04)
[2018-09-01 14:01] LABS: PLATELET ESTIMATE NORMAL
[2018-09-01] MEDS: THEOPHYLLINE ANHYDROUS 80 MG/15 ML 240ML PO SCH ×2 (14:19→22:18)
[2018-09-01 16:33] LABS: CREATINE KINASE MB FRACTION 2.2 ng/mL (0.5-3.6)
[2018-09-01] MEDS: TRAZODONE HCL 50MG TABLET PO SCH (21:17)
[2018-09-01] MEDS: GUAIFENESIN 200MG/10ML SUGAR FREE UDC PO PRN (21:24)
[2018-09-02] VITALS (12 sets, daily range): BP systolic 110–140; BP diastolic 68–82
[2018-09-02] MEDS: METHYLPREDNISOLONE SOD SUCC 125 MG/2 ML VIAL IV SCH ×4 (00:02→21:16)
[2018-09-02] MEDS: IPRATROPIUM/ALBUTEROL 0.5-3(2.5)MG/3ML NEB HHN SCH ×6 (00:27→21:13)
[2018-09-02] MEDS: THEOPHYLLINE ANHYDROUS 80 MG/15 ML 240ML PO SCH ×3 (05:47→21:16)
[2018-09-02 07:01] LABS: HEMATOCRIT. 40.2 % (42.0-52.0); HEMOGLOBIN. 13.1 g/dL (14.0-18.0); LYMPHOCYTES % 9.1 % (20.0-50.0); MEAN CORPUSCULAR HEMOGLOBIN 30.3 pg (28.0-32.0); MEAN CORPUSCULAR VOLUME 92.6 fL (80.0-94.0); MEAN PLATELET VOLUME 8.5 fl (7.4-10.4); MONOCYTES % 2.3 % (2.0-8.0); NEUTROPHILS % 88.6 % (40.0-76.0); PLATELET 176 x1000/uL (130-400); RED BLOOD CELL COUNT 4.34 mill/uL (4.7-6.1); RED CELL DISTRIBUTION WIDTH 14.8 % (11.6-14.6)
[2018-09-02 07:22] LABS: CHLORIDE 97 mEq/L (98-107)
[2018-09-02 08:37] LABS: *AMPHETAMINES SCREEN URINE NEGATIVE (NEGATIVE)
[2018-09-02 08:38] LABS: *BARBITURATES SCREEN URINE NEGATIVE (NEGATIVE); *BENZODIAZEPINES SCREEN URINE NEGATIVE (NEGATIVE); *COCAINE SCREEN URINE NEGATIVE (NEGATIVE); METHADONE URINE SCREEN NEGATIVE (NEGATIVE); OPIATES URINE SCREEN PRESUMTIVE POSITIVE (NEGATIVE); PHENCYCLIDINE URINE SCREEN NEGATIVE (NEGATIVE)
[2018-09-02 08:39] LABS: CANNABINOID URINE SCREEN NEGATIVE (NEGATIVE)
[2018-09-02] MEDS ORDERED: NA PHOS,M-B/NA PHOS,DI-BA ENEMA 118ML PR PRN (09:00)
[2018-09-02] MEDS: AZITHROMYCIN 500 MG in DEXT 5% WATER 250 ML IV SCH (11:18)
[2018-09-02] MEDS: ASPIRIN 81MG TABLET PO SCH (11:18)
[2018-09-02] MEDS: LEVETIRACETAM 500MG TABLET PO SCH ×2 (11:18→21:17)
[2018-09-02] MEDS: OMEPRAZOLE 20MG CAPSULE EXTENDED RELEASE PO SCH (11:18)
[2018-09-02] MEDS: MIDODRINE HCL 2.5MG TABLET PO SCH ×3 (11:21→17:44)
[2018-09-02] MEDS: ENOXAPARIN 40MG/0.4ML SYR SUBCUT SCH (11:21)
[2018-09-02] MEDS: GUAIFENESIN 200MG/10ML SUGAR FREE UDC PO PRN (17:44)
[2018-09-02] MEDS: TRAMADOL 50MG TABLET PO PRN (17:50)
[2018-09-02] MEDS: TRAZODONE HCL 50MG TABLET PO SCH (21:17)
[2018-09-03] VITALS (10 sets, daily range): BP systolic 108–132; BP diastolic 73–86
[2018-09-03] MEDS: IPRATROPIUM/ALBUTEROL 0.5-3(2.5)MG/3ML NEB HHN SCH ×6 (00:31→20:56)
[2018-09-03] MEDS: METHYLPREDNISOLONE SOD SUCC 125 MG/2 ML VIAL IV SCH (06:07)
[2018-09-03] MEDS: THEOPHYLLINE ANHYDROUS 80 MG/15 ML 240ML PO SCH ×2 (06:07→13:40)
[2018-09-03] MEDS: OMEPRAZOLE 20MG CAPSULE EXTENDED RELEASE PO SCH (09:54)
[2018-09-03] MEDS: LEVETIRACETAM 500MG TABLET PO SCH (09:54)
[2018-09-03] MEDS: MIDODRINE HCL 2.5MG TABLET PO SCH ×3 (09:55→18:31)
[2018-09-03] MEDS: AZITHROMYCIN 500 MG in DEXT 5% WATER 250 ML IV SCH (09:55)
[2018-09-03] MEDS: ASPIRIN 81MG TABLET PO SCH (09:55)
[2018-09-03] MEDS: ENOXAPARIN 40MG/0.4ML SYR SUBCUT SCH (09:56)
[2018-09-03] MEDS: TRAMADOL 50MG TABLET PO PRN ×2 (10:26→17:57)
[2018-09-03 11:01] LABS: BASOPHILS % 0.4 % (0.0-2.0); HEMATOCRIT. 42.8 % (42.0-52.0); HEMOGLOBIN. 13.9 g/dL (14.0-18.0); LYMPHOCYTES % 7.2 % (20.0-50.0); MEAN CORPUSCULAR HEMOGLOBIN 30.2 pg (28.0-32.0); MONOCYTES % 2.5 % (2.0-8.0); NEUTROPHILS % 89.9 % (40.0-76.0); PLATELET 178 x1000/uL (130-400); RED CELL DISTRIBUTION WIDTH 14.5 % (11.6-14.6)
[2018-09-03 11:13] LABS: CHLORIDE 98 mEq/L (98-107)
[2018-09-03] MEDS: PROMETHAZINE/DEXTROMETHORPHAN 6.25-15MG/5ML BOTTLE 120ML PO PRN (11:20)
[2018-09-03] MEDS ORDERED: BENZONATATE 100MG CAPSULE PO PRN (13:00)
[2018-09-03] MEDS ORDERED: ACETYLCYSTEINE 100MG/ML 10% VIAL 4ML INH SCH (14:00)
[2018-09-03] MEDS ORDERED: FUROSEMIDE 40MG/4ML VIAL IVP NR (15:00)
[2018-09-03] MEDS ORDERED: METHYLPREDNISOLONE SOD SUCC 125 MG/2 ML VIAL IV SCH (18:00)
[2018-09-03] MEDS: PREDNISONE 20MG TABLET PO SCH (18:30)
[2018-09-04] VITALS: BP 113/74
[2018-09-04] MEDS: ACETYLCYSTEINE 100MG/ML 10% VIAL 4ML INH SCH ×2 (00:28→16:20)
[2018-09-04] MEDS: IPRATROPIUM/ALBUTEROL 0.5-3(2.5)MG/3ML NEB HHN SCH ×4 (00:28→16:19)
[2018-09-04] MEDS: LEVETIRACETAM 500MG TABLET PO SCH ×2 (00:51→09:48)
[2018-09-04] MEDS: TRAZODONE HCL 50MG TABLET PO SCH (00:52)
[2018-09-04 04:00] VITALS: BP 122/81
[2018-09-04] MEDS: THEOPHYLLINE ANHYDROUS 80 MG/15 ML 240ML PO SCH (06:14)
[2018-09-04 06:30] LABS: BASOPHILS % 0.1 % (0.0-2.0); EOSINOPHILS % 0.1 % (0.0-5.0); HEMATOCRIT. 42.5 % (42.0-52.0); HEMOGLOBIN. 13.9 g/dL (14.0-18.0); LYMPHOCYTES % 29.5 % (20.0-50.0); MEAN CORPUSCULAR HEMOGLOBIN 30.1 pg (28.0-32.0); MEAN CORPUSCULAR VOLUME 91.8 fL (80.0-94.0); NEUTROPHILS % 61.3 % (40.0-76.0); PLATELET 199 x1000/uL (130-400); RED BLOOD CELL COUNT 4.63 mill/uL (4.7-6.1); RED CELL DISTRIBUTION WIDTH 14.7 % (11.6-14.6)
[2018-09-04 06:49] LABS: CHLORIDE 93 mEq/L (98-107)
[2018-09-04 08:00] VITALS: BP 119/77
[2018-09-04] MEDS ORDERED: FAMOTIDINE 20MG TABLET PO SCH (09:00)
[2018-09-04] MEDS ORDERED: FUROSEMIDE 40MG/4ML VIAL IVP SCH (09:00)
[2018-09-04] MEDS: ENOXAPARIN 40MG/0.4ML SYR SUBCUT SCH (09:47)
[2018-09-04] MEDS: ASPIRIN 81MG TABLET PO SCH (09:48)
[2018-09-04] MEDS: PREDNISONE 20MG TABLET PO SCH ×2 (09:48→17:00)
[2018-09-04] MEDS: MIDODRINE HCL 2.5MG TABLET PO SCH ×3 (09:49→17:00)
[2018-09-04] MEDS: PROMETHAZINE/DEXTROMETHORPHAN 6.25-15MG/5ML BOTTLE 120ML PO PRN (09:53)
[2018-09-04] MEDS: TRAMADOL 50MG TABLET PO PRN (10:07)
[2018-09-04 12:00] VITALS: BP 123/72
[2018-09-04 16:00] VITALS: BP 104/71
[2018-09-04 18:16] VITALS: BP 104/71
[2018-09-04] MEDS ORDERED: BUDESONIDE 0.5MG/2ML NEB HHN SCH (20:00)
[2018-09-05] MEDS ORDERED: AZITHROMYCIN 500 MG TABLET PO SCH (09:00)
== END 2018-09-04 21:10 | DRG 189 ==
LOC: ER 15:17 → 6WST 18:24 → ENRESERV 21:02 → 5EST 09-01 01:20 → 8WST 09-03 15:22
PROVIDERS: ADMIT Internal Medicine Nephrology; ATTEND Internal Medicine Nephrology
PROC: 5A09357 Assistance with Respiratory Ventilation, Less than 24 Consecutive Hours, Continuous Positive Airway Pressure (ICD-10-PCS; principal; 2018-09-01)
DX: J96.02 Acute respiratory failure with hypercapnia (principal); J43.9 Emphysema, unspecified; J96.01 Acute respiratory failure with hypoxia; D64.9 Anemia, unspecified; G40.909 Epilepsy, unspecified, not intractable, without status epilepticus; F41.9 Anxiety disorder, unspecified; E11.9 Type 2 diabetes mellitus without complications; I11.0 Hypertensive heart disease with heart failure; I50.810 Right heart failure, unspecified; I27.81 Cor pulmonale (chronic); G89.29 Other chronic pain; M54.9 Dorsalgia, unspecified; Z87.891 Personal history of nicotine dependence; Z99.81 Dependence on supplemental oxygen; Z88.5 Allergy status to narcotic agent; Z79.84 Long term (current) use of oral hypoglycemic drugs
CPT/HCPCS: 36415; 36600; 71045; 78580; 80048; 80305; 82375; 82550; 82553; 82805; 82962; 83735; 83880; 84100; 84484; 93005; 93970; 94644; 96365; 96375; 99285; J0456; J1650; J1940; J1956; J2920; J2930; J3105; J7050; J7060; J7512; J7608; J7611; J7620; J7626

== ENCOUNTER 2019-04-07 13:05 | Inpatient (IN) | payer MEDICARE, MEDICAID ==
[~2019-04-07] VITALS: Ht 177.8 cm; Wt 54.0 kg
[~2019-04-07 13:05] MED LIST changes: -OMEP20CA10 PO; +OMEP20CA5 PO; -TRAZ-212 PO; +TRAZ-251 PO
[2019-04-07] MEDS ORDERED: IPRATROPIUM BROMIDE (0.02%) 0.5MG/2.5ML NEB HHN STA (13:22)
[2019-04-07] MEDS ORDERED: ALBUTEROL (0.083%) 2.5MG/3ML NEB HHN STA (13:22)
[2019-04-07] MEDS ORDERED: METHYLPREDNISOLONE SOD SUCC 125 MG/2 ML VIAL IV STA (13:22)
[2019-04-07] MEDS ORDERED: LEVOFLOXACIN 750MG PREMIX 150 ML IV ONE (13:30)
[2019-04-07] MEDS ORDERED: SODIUM CHLORIDE 0.9% 1000ML BAG (SEPSIS BOLUS) IV ONE (13:30)
[2019-04-07 14:25] LABS: BASOPHILS % 0.8 % (0.0-2.0); EOSINOPHILS % 1.3 % (0.0-5.0); HEMATOCRIT. 41.7 % (42.0-52.0); HEMOGLOBIN. 13.5 g/dL (14.0-18.0); LYMPHOCYTES % 21.8 % (20.0-50.0); MEAN CORPUSCULAR HEMOGLOBIN 29.4 pg (28.0-32.0); MEAN PLATELET VOLUME 8.1 fl (7.4-10.4); NEUTROPHILS % 69.1 % (40.0-76.0); PLATELET 201 x1000/uL (130-400); RED BLOOD CELL COUNT 4.59 mill/uL (4.7-6.1); RED CELL DISTRIBUTION WIDTH 14.9 % (11.6-14.6)
[2019-04-07 14:29] LABS: INR 1.2; PROTHROMBIN TIME 12.1 sec (9.6-11.0)
[2019-04-07 14:32] LABS: CHLORIDE 97 mEq/L (98-107)
[2019-04-07 14:57] LABS: CLARITY URINE CLEAR (CLEAR); COLOR URINE YELLOW (YELLOW); KETONES URINE NEGATIVE (NEGATIVE); LEUKOCYTE ESTERASE URINE NEGATIVE (NEGATIVE); NITRITE URINE NEGATIVE (NEGATIVE); OCCULT BLOOD URINE NEGATIVE (NEGATIVE); PH URINE 7.5 (4.5-8.0); PROTEIN URINE NEGATIVE (NEGATIVE); SPECIFIC GRAVITY URINE 1.008 (1.005-1.030); UROBILINOGEN URINE 0.2 E.U./dL (0.2-1.0)
[2019-04-07] MEDS ORDERED: CLONIDINE 0.1MG TABLET PO PRN (15:15)
[2019-04-07] MEDS ORDERED: ASPIRIN 325MG EC TABLET PO ONE (15:15)
[2019-04-07] MEDS ORDERED: ONDANSETRON HCL 4MG/2ML INJ IV PRN (15:15)
[2019-04-07] MEDS ORDERED: DOCUSATE SODIUM 100MG CAPSULE PO PRN (15:15)
[2019-04-07] MEDS ORDERED: ACETAMINOPHEN 325MG TABLET PO PRN (15:15)
[2019-04-07] MEDS ORDERED: ENOXAPARIN 80MG/0.8ML SYR SUBCUT ONE (15:15)
[2019-04-07] MEDS: AMLODIPINE 5MG TABLET PO SCH (21:00)
[2019-04-07 21:13] VITALS: BP 99/66
[2019-04-07] MEDS: IPRATROPIUM/ALBUTEROL 0.5-3(2.5)MG/3ML NEB HHN SCH (21:51)
[2019-04-07] MEDS: LEVETIRACETAM 500MG/5ML CUP PO SCH (22:42)
[2019-04-07] MEDS: PHENYTOIN SODIUM EXTENDED 100MG CAPSULE PO SCH (22:42)
[2019-04-07] MEDS: METHYLPREDNISOLONE SOD SUCC 125 MG/2 ML VIAL IV SCH (22:42)
[2019-04-07] MEDS: BACLOFEN 10MG TABLET PO SCH (22:42)
[2019-04-07] MEDS: TRAZODONE HCL 50MG TABLET PO SCH (22:42)
[2019-04-07] MEDS ORDERED: TRAMADOL 50MG TABLET PO PRN (23:15)
[2019-04-08] VITALS (7 sets, daily range): BP systolic 90–130; BP diastolic 62–92
[2019-04-08] MEDS: IPRATROPIUM/ALBUTEROL 0.5-3(2.5)MG/3ML NEB HHN SCH ×5 (01:13→20:53)
[2019-04-08] MEDS: METHYLPREDNISOLONE SOD SUCC 125 MG/2 ML VIAL IV SCH ×4 (04:48→21:17)
[2019-04-08] MEDS: ENOXAPARIN 40MG/0.4ML SYR SUBCUT SCH (04:49)
[2019-04-08] MEDS: IPRATROPIUM/ALBUTEROL 0.5-3(2.5)MG/3ML NEB HHN PRN ×2 (04:51→12:45)
[2019-04-08] MEDS: PHENYTOIN SODIUM EXTENDED 100MG CAPSULE PO SCH ×3 (06:15→21:16)
[2019-04-08] MEDS: BACLOFEN 10MG TABLET PO SCH ×3 (06:15→21:16)
[2019-04-08] MEDS: BRIMONIDINE 0.2% OPHTH DROPS 5ML EACHEYE SCH ×3 (06:15→21:17)
[2019-04-08 06:49] LABS: BG CARBOXYHEMOGLOBIN 1.6 % (0.5-1.5); BG DEOXYHEMOGLOBIN 8.1 % (0.0-5.0); BG HCO3 ACT 40.9 mmol/L (22.0-26.0); BG OXYGEN SATURATION 91.8 % (92.0-98.5); BG OXYHEMOGLOBIN 90.3 % (94.0-97.0); BG PCO2 75.5 mmHg (35.0-45.0); BG PH 7.352 (7.350-7.450); BG PO2 65.2 mmHg (75.0-100.0); BG SAMPLE SITE RIGHT BRACHIAL; BG TOTAL HEMOGLOBIN 13.6 g/dL (12.0-18.0); BG VENT MODE NASAL CANNULA
[2019-04-08 06:55] LABS: HEMATOCRIT. 39.1 % (42.0-52.0); LYMPHOCYTES % 13.8 % (20.0-50.0); MEAN CORPUSCULAR HEMOGLOBIN 30.1 pg (28.0-32.0); MEAN CORPUSCULAR VOLUME 90.4 fL (80.0-94.0); MEAN PLATELET VOLUME 8.9 fl (7.4-10.4); MONOCYTES % 1.7 % (2.0-8.0); NEUTROPHILS % 84.5 % (40.0-76.0); PLATELET 191 x1000/uL (130-400); RED BLOOD CELL COUNT 4.33 mill/uL (4.7-6.1); RED CELL DISTRIBUTION WIDTH 14.9 % (11.6-14.6)
[2019-04-08 06:56] LABS: CHLORIDE 99 mEq/L (98-107)
[2019-04-08 07:03] LABS: LDL CHOLESTEROL 42 mg/dL (5-100)
[2019-04-08 07:05] LABS: HDL CHOLESTEROL 54 mg/dL (40-59)
[2019-04-08] MEDS: LEVETIRACETAM 500MG/5ML CUP PO SCH ×2 (08:54→21:16)
[2019-04-08] MEDS: FOLIC ACID 1MG TABLET PO SCH (08:54)
[2019-04-08] MEDS: AMLODIPINE 5MG TABLET PO SCH ×2 (09:00→21:16)
[2019-04-08] MEDS ORDERED: LEVOFLOXACIN 500MG PREMIX 100 ML IV SCH (14:00)
[2019-04-08] MEDS: FUROSEMIDE 20MG TABLET PO SCH (14:22)
[2019-04-08] MEDS: THEOPHYLLINE ANHYDROUS 80 MG/15 ML 120ML PO SCH ×2 (15:00→21:17)
[2019-04-08] MEDS: TRAZODONE HCL 50MG TABLET PO SCH (21:16)
[2019-04-09] VITALS (11 sets, daily range): BP systolic 100–151; BP diastolic 47–90
[2019-04-09] MEDS: IPRATROPIUM/ALBUTEROL 0.5-3(2.5)MG/3ML NEB HHN SCH ×7 (00:51→23:48)
[2019-04-09] MEDS: METHYLPREDNISOLONE SOD SUCC 125 MG/2 ML VIAL IV SCH ×3 (04:03→22:03)
[2019-04-09] MEDS: BACLOFEN 10MG TABLET PO SCH ×3 (05:22→22:00)
[2019-04-09] MEDS: THEOPHYLLINE ANHYDROUS 80 MG/15 ML 120ML PO SCH ×2 (05:22→15:34)
[2019-04-09] MEDS: PHENYTOIN SODIUM EXTENDED 100MG CAPSULE PO SCH ×3 (05:22→22:00)
[2019-04-09] MEDS: BRIMONIDINE 0.2% OPHTH DROPS 5ML EACHEYE SCH ×3 (05:22→22:01)
[2019-04-09] MEDS: FUROSEMIDE 20MG TABLET PO SCH (08:38)
[2019-04-09] MEDS: FOLIC ACID 1MG TABLET PO SCH (08:38)
[2019-04-09] MEDS: LEVETIRACETAM 500MG/5ML CUP PO SCH ×2 (08:38→20:49)
[2019-04-09] MEDS: ENOXAPARIN 40MG/0.4ML SYR SUBCUT SCH (08:38)
[2019-04-09] MEDS: AMLODIPINE 5MG TABLET PO SCH ×2 (08:39→20:42)
[2019-04-09 10:53] LABS: BG BASE EXCESS 11.5 mmol/L (-2.0-2.0); BG CARBOXYHEMOGLOBIN 0.9 % (0.5-1.5); BG DEOXYHEMOGLOBIN 4.1 % (0.0-5.0); BG FRACTION INSPIRED OXYGEN 32; BG HCO3 ACT 37.9 mmol/L (22.0-26.0); BG OXYGEN SATURATION 95.9 % (92.0-98.5); BG PCO2 57.6 mmHg (35.0-45.0); BG PH 7.436 (7.350-7.450); BG PO2 81.5 mmHg (75.0-100.0); BG SAMPLE SITE RIGHT RADIAL; BG TOTAL HEMOGLOBIN 13.2 g/dL (12.0-18.0); BG VENT MODE NASAL CANNULA
[2019-04-09] MEDS ORDERED: TERBUTALINE SULFATE 1MG/ML VIAL SUBCUT NR (11:15)
[2019-04-09] MEDS: LORAZEPAM 2MG/ML CPJ IV PRN ×2 (11:32→22:40)
[2019-04-09 13:35] LABS: HEMATOCRIT. 42.2 % (42.0-52.0); HEMOGLOBIN. 13.8 g/dL (14.0-18.0); MEAN CORPUSCULAR HEMOGLOBIN 29.6 pg (28.0-32.0); MEAN CORPUSCULAR VOLUME 90.5 fL (80.0-94.0); MEAN PLATELET VOLUME 8.7 fl (7.4-10.4); PLATELET 190 x1000/uL (130-400); RED BLOOD CELL COUNT 4.66 mill/uL (4.7-6.1); RED CELL DISTRIBUTION WIDTH 14.7 % (11.6-14.6)
[2019-04-09 13:46] LABS: CHLORIDE 95 mEq/L (98-107)
[2019-04-09 14:01] LABS: PLATELET ESTIMATE NORMAL
[2019-04-09] MEDS ORDERED: LEVOFLOXACIN 500MG PREMIX 100 ML IV SCH (16:00)
[2019-04-09] MEDS: TRAZODONE HCL 50MG TABLET PO SCH (20:49)
[2019-04-10] VITALS (13 sets, daily range): BP systolic 93–128; BP diastolic 42–77
[2019-04-10] MEDS: THEOPHYLLINE ANHYDROUS 80 MG/15 ML 120ML PO SCH ×4 (00:34→21:46)
[2019-04-10] MEDS: IPRATROPIUM/ALBUTEROL 0.5-3(2.5)MG/3ML NEB HHN SCH ×5 (04:03→20:53)
[2019-04-10] MEDS: METHYLPREDNISOLONE SOD SUCC 125 MG/2 ML VIAL IV SCH ×4 (05:01→21:52)
[2019-04-10] MEDS: BRIMONIDINE 0.2% OPHTH DROPS 5ML EACHEYE SCH ×3 (05:19→21:47)
[2019-04-10] MEDS: BACLOFEN 10MG TABLET PO SCH ×3 (05:20→21:52)
[2019-04-10] MEDS: PHENYTOIN SODIUM EXTENDED 100MG CAPSULE PO SCH ×3 (05:20→21:46)
[2019-04-10 06:11] LABS: BASOPHILS % 0.1 % (0.0-2.0); HEMATOCRIT. 40.6 % (42.0-52.0); HEMOGLOBIN. 13.2 g/dL (14.0-18.0); LYMPHOCYTES % 9.2 % (20.0-50.0); MEAN CORPUSCULAR HEMOGLOBIN 29.2 pg (28.0-32.0); MEAN CORPUSCULAR VOLUME 89.9 fL (80.0-94.0); MEAN PLATELET VOLUME 8.7 fl (7.4-10.4); MONOCYTES % 3.6 % (2.0-8.0); NEUTROPHILS % 87.1 % (40.0-76.0); PLATELET 190 x1000/uL (130-400); RED BLOOD CELL COUNT 4.51 mill/uL (4.7-6.1); RED CELL DISTRIBUTION WIDTH 14.6 % (11.6-14.6)
[2019-04-10 06:35] LABS: CHLORIDE 93 mEq/L (98-107)
[2019-04-10] MEDS: LEVETIRACETAM 500MG/5ML CUP PO SCH ×2 (08:37→21:45)
[2019-04-10] MEDS: AMLODIPINE 5MG TABLET PO SCH ×2 (08:37→21:52)
[2019-04-10] MEDS: FUROSEMIDE 20MG TABLET PO SCH (08:38)
[2019-04-10] MEDS: FOLIC ACID 1MG TABLET PO SCH (08:38)
[2019-04-10] MEDS: ENOXAPARIN 40MG/0.4ML SYR SUBCUT SCH (09:05)
[2019-04-10] MEDS: LORAZEPAM 2MG/ML CPJ IV PRN ×2 (11:26→19:50)
[2019-04-10] MEDS: TRAZODONE HCL 50MG TABLET PO SCH (21:46)
[2019-04-11] VITALS (12 sets, daily range): BP systolic 98–158; BP diastolic 48–83
[2019-04-11] MEDS: IPRATROPIUM/ALBUTEROL 0.5-3(2.5)MG/3ML NEB HHN SCH ×6 (01:10→20:06)
[2019-04-11] MEDS: METHYLPREDNISOLONE SOD SUCC 125 MG/2 ML VIAL IV SCH ×4 (04:58→21:51)
[2019-04-11] MEDS ORDERED: IPRATROPIUM/ALBUTEROL 0.5-3(2.5)MG/3ML NEB ONE (05:09)
[2019-04-11] MEDS: PHENYTOIN SODIUM EXTENDED 100MG CAPSULE PO SCH ×3 (06:23→21:49)
[2019-04-11] MEDS: BACLOFEN 10MG TABLET PO SCH ×3 (06:23→21:49)
[2019-04-11] MEDS: BRIMONIDINE 0.2% OPHTH DROPS 5ML EACHEYE SCH ×3 (06:23→21:52)
[2019-04-11] MEDS: THEOPHYLLINE ANHYDROUS 80 MG/15 ML 120ML PO SCH ×3 (06:23→21:52)
[2019-04-11 06:49] LABS: BASOPHILS % 0.1 % (0.0-2.0); HEMOGLOBIN. 12.3 g/dL (14.0-18.0); LYMPHOCYTES % 13.6 % (20.0-50.0); MEAN CORPUSCULAR HEMOGLOBIN 29.7 pg (28.0-32.0); MEAN CORPUSCULAR VOLUME 89.1 fL (80.0-94.0); MEAN PLATELET VOLUME 8.6 fl (7.4-10.4); MONOCYTES % 8.3 % (2.0-8.0); PLATELET 177 x1000/uL (130-400); RED BLOOD CELL COUNT 4.15 mill/uL (4.7-6.1); RED CELL DISTRIBUTION WIDTH 14.6 % (11.6-14.6)
[2019-04-11 06:58] LABS: CHLORIDE 95 mEq/L (98-107)
[2019-04-11 08:24] LABS: BG BASE EXCESS 10.1 mmol/L (-2.0-2.0); BG DEOXYHEMOGLOBIN 5.5 % (0.0-5.0); BG FRACTION INSPIRED OXYGEN 32; BG HCO3 ACT 36.8 mmol/L (22.0-26.0); BG METHEMOGLOBIN 0.1 % (0.0-1.5); BG OXYGEN SATURATION 94.4 % (92.0-98.5); BG OXYHEMOGLOBIN 93.4 % (94.0-97.0); BG PCO2 58.1 mmHg (35.0-45.0); BG PH 7.419 (7.350-7.450); BG PO2 72.2 mmHg (75.0-100.0); BG SAMPLE SITE RIGHT BRACHIAL; BG TOTAL HEMOGLOBIN 13.5 g/dL (12.0-18.0); BG VENT MODE NASAL CANNULA
[2019-04-11] MEDS: LEVETIRACETAM 500MG/5ML CUP PO SCH ×2 (09:09→21:49)
[2019-04-11] MEDS: FOLIC ACID 1MG TABLET PO SCH (09:09)
[2019-04-11] MEDS: FUROSEMIDE 20MG TABLET PO SCH (09:09)
[2019-04-11] MEDS: AMLODIPINE 5MG TABLET PO SCH ×2 (09:10→21:49)
[2019-04-11] MEDS: ENOXAPARIN 40MG/0.4ML SYR SUBCUT SCH (09:10)
[2019-04-11] MEDS: LEVOFLOXACIN 500MG TABLET PO SCH (12:07)
[2019-04-11] MEDS: TRAZODONE HCL 50MG TABLET PO SCH (21:49)
[2019-04-12] VITALS (10 sets, daily range): BP systolic 110–157; BP diastolic 48–79
[2019-04-12] MEDS: IPRATROPIUM/ALBUTEROL 0.5-3(2.5)MG/3ML NEB HHN SCH ×5 (00:24→15:41)
[2019-04-12] MEDS: LORAZEPAM 2MG/ML CPJ IV PRN (02:32)
[2019-04-12] MEDS: METHYLPREDNISOLONE SOD SUCC 125 MG/2 ML VIAL IV SCH ×2 (03:38→09:38)
[2019-04-12] MEDS: PHENYTOIN SODIUM EXTENDED 100MG CAPSULE PO SCH ×2 (05:33→13:53)
[2019-04-12] MEDS: BRIMONIDINE 0.2% OPHTH DROPS 5ML EACHEYE SCH ×2 (05:33→13:53)
[2019-04-12] MEDS: BACLOFEN 10MG TABLET PO SCH ×2 (05:33→13:53)
[2019-04-12] MEDS: THEOPHYLLINE ANHYDROUS 80 MG/15 ML 120ML PO SCH ×2 (05:33→13:52)
[2019-04-12 07:21] LABS: HEMATOCRIT. 37.3 % (42.0-52.0); HEMOGLOBIN. 12.4 g/dL (14.0-18.0); MEAN CORPUSCULAR HEMOGLOBIN 29.7 pg (28.0-32.0); MEAN PLATELET VOLUME 8.6 fl (7.4-10.4); PLATELET 182 x1000/uL (130-400); RED BLOOD CELL COUNT 4.19 mill/uL (4.7-6.1); RED CELL DISTRIBUTION WIDTH 14.4 % (11.6-14.6)
[2019-04-12 07:36] LABS: CHLORIDE 96 mEq/L (98-107)
[2019-04-12] MEDS ORDERED: ENOXAPARIN 30MG/0.3ML SYR SUBCUT SCH (09:00)
[2019-04-12] MEDS: LEVETIRACETAM 500MG/5ML CUP PO SCH (09:38)
[2019-04-12] MEDS: FOLIC ACID 1MG TABLET PO SCH (09:39)
[2019-04-12] MEDS: AMLODIPINE 5MG TABLET PO SCH (09:39)
[2019-04-12] MEDS: FUROSEMIDE 20MG TABLET PO SCH (09:39)
[2019-04-12 11:14] LABS: PLATELET ESTIMATE NORMAL
[2019-04-12] MEDS: LEVOFLOXACIN 500MG TABLET PO SCH (12:31)
[2019-04-12] MEDS ORDERED: METHYLPREDNISOLONE SOD SUCC 125 MG/2 ML VIAL IV SCH (17:00)
[2019-04-12] MEDS ORDERED: PREDNISONE 20MG TABLET PO SCH (18:00)
== END 2019-04-12 18:22 | DRG 189 ==
LOC: ER 13:05 → 7WST 15:16 → ENRESERV 19:58 → 5EST 04-08 15:15 → UNDODISIN 04-11 00:15
PROVIDERS: ADMIT Internal Medicine Nephrology; ATTEND Internal Medicine Nephrology
PROC: 5A09357 Assistance with Respiratory Ventilation, Less than 24 Consecutive Hours, Continuous Positive Airway Pressure (ICD-10-PCS; principal; 2019-04-08)
PROC: 5A09457 Assistance with Respiratory Ventilation, 24-96 Consecutive Hours, Continuous Positive Airway Pressure (ICD-10-PCS; 2019-04-09)
PROC: 5A09357 Assistance with Respiratory Ventilation, Less than 24 Consecutive Hours, Continuous Positive Airway Pressure (ICD-10-PCS; 2019-04-12)
DX: J96.02 Acute respiratory failure with hypercapnia (principal); I42.9 Cardiomyopathy, unspecified; I50.22 Chronic systolic (congestive) heart failure; I27.81 Cor pulmonale (chronic); J43.9 Emphysema, unspecified; D64.9 Anemia, unspecified; F41.9 Anxiety disorder, unspecified; I27.29 Other secondary pulmonary hypertension; G40.909 Epilepsy, unspecified, not intractable, without status epilepticus; E11.9 Type 2 diabetes mellitus without complications; F17.210 Nicotine dependence, cigarettes, uncomplicated; I11.0 Hypertensive heart disease with heart failure; Z79.899 Other long term (current) drug therapy; Z82.49 Family history of ischemic heart disease and other diseases of the circulatory system; Z99.81 Dependence on supplemental oxygen; Z88.8 Allergy status to other drugs, medicaments and biological substances; Z79.82 Long term (current) use of aspirin
CPT/HCPCS: 36415; 36600; 71045; 80048; 80061; 80185; 81003; 82375; 82805; 83605; 83880; 84145; 84484; 85379; 93005; 93306; 93970; 96365; 99285; J1650; J1956; J2060; J2405; J2930; J3105; J7030; J7611; J7620

== ENCOUNTER 2019-04-19 11:30 | Inpatient (IN) | payer MEDICARE, MEDICAID ==
[~2019-04-19] VITALS: Ht 188 cm; Wt 84.0 kg
[~2019-04-19 11:30] MED LIST changes: +OMEP20CA14 PO; -OMEP20CA5 PO
[2019-04-19] MEDS ORDERED: ALBUTEROL (0.083%) 2.5MG/3ML NEB HHN STA (11:59)
[2019-04-19] MEDS ORDERED: IPRATROPIUM BROMIDE (0.02%) 0.5MG/2.5ML NEB HHN STA (11:59)
[2019-04-19] MEDS ORDERED: METHYLPREDNISOLONE SOD SUCC 125 MG/2 ML VIAL IV STA (11:59)
[2019-04-19] MEDS ORDERED: ASPIRIN 81MG TABLET PO ONE (12:15)
[2019-04-19] MEDS ORDERED: CLONIDINE 0.1MG TABLET PO PRN (12:15)
[2019-04-19] MEDS ORDERED: ACETAMINOPHEN 325MG TABLET PO PRN (12:15)
[2019-04-19] MEDS ORDERED: ENOXAPARIN 40MG/0.4ML SYR SUBCUT SCH (12:15)
[2019-04-19] MEDS ORDERED: NITROGLYCERIN OINT 1GM/INCH UDPKT TD ONE (12:15)
[2019-04-19] MEDS ORDERED: METHYLPREDNISOLONE SOD SUCC 125 MG/2 ML VIAL IV SCH (12:15)
[2019-04-19] MEDS ORDERED: ONDANSETRON HCL 4MG/2ML INJ IV PRN (12:15)
[2019-04-19] MEDS ORDERED: FUROSEMIDE 40MG/4ML VIAL IV ONE (12:15)
[2019-04-19] MEDS ORDERED: DOCUSATE SODIUM 100MG CAPSULE PO PRN (12:15)
[2019-04-19 12:48] LABS: BASOPHILS % 0.5 % (0.0-2.0); EOSINOPHILS % 1.5 % (0.0-5.0); HEMATOCRIT. 47.6 % (42.0-52.0); HEMOGLOBIN. 15.6 g/dL (14.0-18.0); LYMPHOCYTES % 11.1 % (20.0-50.0); MEAN CORPUSCULAR HEMOGLOBIN 29.9 pg (28.0-32.0); MEAN CORPUSCULAR VOLUME 91.1 fL (80.0-94.0); MEAN PLATELET VOLUME 7.5 fl (7.4-10.4); NEUTROPHILS % 76.9 % (40.0-76.0); PLATELET 303 x1000/uL (130-400); RED BLOOD CELL COUNT 5.22 mill/uL (4.7-6.1); RED CELL DISTRIBUTION WIDTH 15.2 % (11.6-14.6)
[2019-04-19 12:55] LABS: INR 1.1; PROTHROMBIN TIME 10.8 sec (9.6-11.0)
[2019-04-19 12:56] LABS: CHLORIDE 101 mEq/L (98-107)
[2019-04-19 13:02] LABS: BG BASE EXCESS 2.1 mmol/L (-2.0-2.0); BG BILEVEL POS AIRWAY PRESSURE 15/5; BG CARBOXYHEMOGLOBIN 1.6 % (0.5-1.5); BG DEOXYHEMOGLOBIN 1.4 % (0.0-5.0); BG FRACTION INSPIRED OXYGEN 60; BG HCO3 ACT 28.4 mmol/L (22.0-26.0); BG METHEMOGLOBIN 0.3 % (0.0-1.5); BG OXYGEN SATURATION 98.6 % (92.0-98.5); BG OXYHEMOGLOBIN 96.7 % (94.0-97.0); BG PCO2 50.3 mmHg (35.0-45.0); BG PH 7.369 (7.350-7.450); BG PO2 134.3 mmHg (75.0-100.0); BG SAMPLE SITE RIGHT RADIAL; BG TOTAL HEMOGLOBIN 14.8 g/dL (12.0-18.0); BG VENT MODE MASK - BIPAP; BG VENT RATE 14 set
[2019-04-19] MEDS ORDERED: VANCOMYCIN 1 G PREMIX 200 ML IV SCH (13:15)
[2019-04-19] MEDS ORDERED: PIPERACILLIN/TAZ 3.375G PREMIX 50 ML IV ONE (13:15)
[2019-04-19] MEDS ORDERED: LORAZEPAM 2MG/ML CPJ IV PRN (14:15)
[2019-04-19 14:31] LABS: CLARITY URINE CLEAR (CLEAR); COLOR URINE DARK YELLOW (YELLOW); KETONES URINE NEGATIVE (NEGATIVE); LEUKOCYTE ESTERASE URINE NEGATIVE (NEGATIVE); NITRITE URINE NEGATIVE (NEGATIVE); OCCULT BLOOD URINE NEGATIVE (NEGATIVE); PH URINE 6.5 (4.5-8.0); PROTEIN URINE TRACE (NEGATIVE); SPECIFIC GRAVITY URINE 1.017 (1.005-1.030)
[2019-04-19] MEDS ORDERED: LEVOFLOXACIN 500MG PREMIX 100 ML IV SCH (16:00)
[2019-04-19] MEDS ORDERED: SODIUM CHLORIDE 0.9% 1000ML BAG (SEPSIS BOLUS) IV ONE (17:30)
[2019-04-19] MEDS ORDERED: METHYLPREDNISOLONE SOD SUCC 125 MG/2 ML VIAL IV NR (20:15)
[2019-04-19 23:00] VITALS: BP 106/67
[2019-04-19] MEDS: AMLODIPINE 5MG TABLET PO SCH (23:00)
[2019-04-19] MEDS: METHYLPREDNISOLONE SOD SUCC 125 MG/2 ML VIAL IV SCH (23:37)
[2019-04-19] MEDS: LEVETIRACETAM 500MG TABLET PO SCH (23:43)
[2019-04-19] MEDS: OMEPRAZOLE 20MG CAPSULE EXTENDED RELEASE PO SCH (23:44)
[2019-04-19] MEDS: BACLOFEN 10MG TABLET PO SCH (23:44)
[2019-04-19] MEDS: TRAZODONE HCL 50MG TABLET PO SCH (23:44)
[2019-04-19] MEDS: ENOXAPARIN 30MG/0.3ML SYR SUBCUT SCH (23:45)
[2019-04-19] MEDS: IPRATROPIUM/ALBUTEROL 0.5-3(2.5)MG/3ML NEB NEB SCH (23:55)
[2019-04-20] VITALS (12 sets, daily range): BP systolic 91–118; BP diastolic 46–73
[2019-04-20] MEDS: LATANOPROST 0.005% OPHTH DROPS 2.5ML EACHEYE SCH ×2 (01:20→21:00)
[2019-04-20] MEDS: IPRATROPIUM/ALBUTEROL 0.5-3(2.5)MG/3ML NEB NEB SCH ×4 (01:56→20:14)
[2019-04-20] MEDS: BACLOFEN 10MG TABLET PO SCH ×3 (06:09→21:12)
[2019-04-20] MEDS: OMEPRAZOLE 20MG CAPSULE EXTENDED RELEASE PO SCH ×2 (06:09→21:11)
[2019-04-20] MEDS: METHYLPREDNISOLONE SOD SUCC 125 MG/2 ML VIAL IV SCH (06:09)
[2019-04-20 06:18] LABS: HEMOGLOBIN. 13.5 g/dL (14.0-18.0); MEAN CORPUSCULAR HEMOGLOBIN 29.6 pg (28.0-32.0); MEAN CORPUSCULAR VOLUME 90.2 fL (80.0-94.0); MEAN PLATELET VOLUME 7.4 fl (7.4-10.4); PLATELET 261 x1000/uL (130-400); RED BLOOD CELL COUNT 4.55 mill/uL (4.7-6.1); RED CELL DISTRIBUTION WIDTH 14.7 % (11.6-14.6)
[2019-04-20 06:34] LABS: CHLORIDE 102 mEq/L (98-107)
[2019-04-20 06:41] LABS: LDL CHOLESTEROL 49 mg/dL (5-100)
[2019-04-20 06:42] LABS: HDL CHOLESTEROL 63 mg/dL (40-59)
[2019-04-20] MEDS: ASPIRIN 81MG TABLET PO SCH (08:40)
[2019-04-20] MEDS: AMLODIPINE 5MG TABLET PO SCH ×2 (08:40→21:00)
[2019-04-20] MEDS: DOCUSATE SODIUM 250MG CAPSULE PO SCH (08:40)
[2019-04-20] MEDS: NICOTINE 14MG PATCH TD SCH (08:40)
[2019-04-20] MEDS: LEVETIRACETAM 500MG TABLET PO SCH ×2 (08:40→21:12)
[2019-04-20] MEDS: FUROSEMIDE 40MG TABLET PO SCH (08:44)
[2019-04-20] MEDS ORDERED: SODIUM POLYSTYRENE SULFONATE 15 G/60 ML BOT PO NR (09:30)
[2019-04-20] MEDS: IPRATROPIUM/ALBUTEROL 0.5-3(2.5)MG/3ML NEB HHN PRN (12:46)
[2019-04-20] MEDS: METHYLPREDNISOLONE SOD SUCC 40 MG/ML VIAL IV SCH ×2 (14:00→21:11)
[2019-04-20] MEDS: LEVOFLOXACIN 500MG PREMIX 100 ML IV SCH (15:59)
[2019-04-20] MEDS: ENOXAPARIN 30MG/0.3ML SYR SUBCUT SCH (21:11)
[2019-04-20] MEDS: TRAZODONE HCL 50MG TABLET PO SCH (21:12)
[2019-04-21] VITALS (12 sets, daily range): BP systolic 96–130; BP diastolic 53–78
[2019-04-21] MEDS: IPRATROPIUM/ALBUTEROL 0.5-3(2.5)MG/3ML NEB HHN PRN (00:41)
[2019-04-21 02:55] LABS: PLATELET ESTIMATE NORMAL
[2019-04-21] MEDS: BACLOFEN 10MG TABLET PO SCH ×3 (05:40→21:23)
[2019-04-21] MEDS: METHYLPREDNISOLONE SOD SUCC 40 MG/ML VIAL IV SCH ×2 (05:40→13:50)
[2019-04-21 07:36] LABS: HEMATOCRIT. 37.7 % (42.0-52.0); HEMOGLOBIN. 12.4 g/dL (14.0-18.0); LYMPHOCYTES % 7.7 % (20.0-50.0); MEAN CORPUSCULAR HEMOGLOBIN 29.9 pg (28.0-32.0); MEAN PLATELET VOLUME 7.4 fl (7.4-10.4); MONOCYTES % 8.1 % (2.0-8.0); NEUTROPHILS % 84.2 % (40.0-76.0); PLATELET 266 x1000/uL (130-400); RED BLOOD CELL COUNT 4.14 mill/uL (4.7-6.1); RED CELL DISTRIBUTION WIDTH 15.3 % (11.6-14.6)
[2019-04-21 07:39] LABS: CHLORIDE 104 mEq/L (98-107)
[2019-04-21] MEDS: IPRATROPIUM/ALBUTEROL 0.5-3(2.5)MG/3ML NEB NEB SCH ×4 (07:48→20:06)
[2019-04-21] MEDS: AMLODIPINE 5MG TABLET PO SCH ×2 (09:00→20:54)
[2019-04-21] MEDS: ASPIRIN 81MG TABLET PO SCH (09:00)
[2019-04-21] MEDS: LEVETIRACETAM 500MG TABLET PO SCH ×2 (09:16→20:41)
[2019-04-21] MEDS: NICOTINE 14MG PATCH TD SCH (09:16)
[2019-04-21] MEDS: FUROSEMIDE 40MG TABLET PO SCH (09:17)
[2019-04-21] MEDS: FAMOTIDINE 20MG TABLET PO SCH ×2 (09:17→20:41)
[2019-04-21] MEDS: DOCUSATE SODIUM 250MG CAPSULE PO SCH (09:17)
[2019-04-21] MEDS: LEVOFLOXACIN 500MG PREMIX 100 ML IV SCH (11:38)
[2019-04-21] MEDS ORDERED: LORAZEPAM 2MG/ML CPJ IV PRN (14:15)
[2019-04-21] MEDS: LATANOPROST 0.005% OPHTH DROPS 2.5ML EACHEYE SCH (20:41)
[2019-04-21] MEDS: TRAZODONE HCL 50MG TABLET PO SCH (20:41)
[2019-04-21] MEDS: ENOXAPARIN 30MG/0.3ML SYR SUBCUT SCH (20:42)
[2019-04-22] VITALS (12 sets, daily range): BP systolic 90–135; BP diastolic 34–94
[2019-04-22] MEDS: IPRATROPIUM/ALBUTEROL 0.5-3(2.5)MG/3ML NEB NEB SCH ×4 (01:26→20:06)
[2019-04-22] MEDS: BACLOFEN 10MG TABLET PO SCH ×3 (07:03→22:35)
[2019-04-22 07:29] LABS: BASOPHILS % 0.2 % (0.0-2.0); HEMATOCRIT. 41.2 % (42.0-52.0); HEMOGLOBIN. 13.3 g/dL (14.0-18.0); LYMPHOCYTES % 17.2 % (20.0-50.0); MEAN CORPUSCULAR HEMOGLOBIN 29.6 pg (28.0-32.0); MEAN CORPUSCULAR VOLUME 91.8 fL (80.0-94.0); MEAN PLATELET VOLUME 7.3 fl (7.4-10.4); MONOCYTES % 10.3 % (2.0-8.0); NEUTROPHILS % 71.3 % (40.0-76.0); PLATELET 282 x1000/uL (130-400); RED BLOOD CELL COUNT 4.49 mill/uL (4.7-6.1); RED CELL DISTRIBUTION WIDTH 15.3 % (11.6-14.6)
[2019-04-22 07:34] LABS: CHLORIDE 104 mEq/L (98-107)
[2019-04-22] MEDS: FAMOTIDINE 20MG TABLET PO SCH ×2 (08:42→20:19)
[2019-04-22] MEDS: LEVETIRACETAM 500MG TABLET PO SCH ×2 (08:42→20:19)
[2019-04-22] MEDS: AMLODIPINE 5MG TABLET PO SCH ×2 (08:43→20:20)
[2019-04-22] MEDS: NICOTINE 14MG PATCH TD SCH (08:43)
[2019-04-22] MEDS: FUROSEMIDE 40MG TABLET PO SCH (08:43)
[2019-04-22] MEDS: DOCUSATE SODIUM 250MG CAPSULE PO SCH (08:43)
[2019-04-22] MEDS: ASPIRIN 81MG TABLET PO SCH (08:44)
[2019-04-22] MEDS ORDERED: PREDNISONE 20MG TABLET PO SCH (09:00)
[2019-04-22] MEDS: LEVOFLOXACIN 500MG TABLET PO SCH (11:41)
[2019-04-22] MEDS ORDERED: TERBUTALINE SULFATE 1MG/ML VIAL SUBCUT SCH (13:15)
[2019-04-22] MEDS ORDERED: METHYLPREDNISOLONE SOD SUCC 125 MG/2 ML VIAL IV SCH (13:15)
[2019-04-22] MEDS: THEOPHYLLINE ANHYDROUS 80 MG/15 ML 120ML PO SCH ×2 (15:22→22:35)
[2019-04-22] MEDS: TRAZODONE HCL 50MG TABLET PO SCH (20:19)
[2019-04-22] MEDS: LATANOPROST 0.005% OPHTH DROPS 2.5ML EACHEYE SCH (20:19)
[2019-04-22] MEDS: ENOXAPARIN 30MG/0.3ML SYR SUBCUT SCH (20:20)
[2019-04-22] MEDS: METHYLPREDNISOLONE SOD SUCC 40 MG/ML VIAL IV SCH (22:35)
[2019-04-23] VITALS (14 sets, daily range): BP systolic 97–124; BP diastolic 58–88
[2019-04-23] MEDS: IPRATROPIUM/ALBUTEROL 0.5-3(2.5)MG/3ML NEB NEB SCH ×2 (01:32→08:12)
[2019-04-23] MEDS: THEOPHYLLINE ANHYDROUS 80 MG/15 ML 120ML PO SCH ×3 (05:52→22:27)
[2019-04-23] MEDS: BACLOFEN 10MG TABLET PO SCH ×3 (05:52→22:28)
[2019-04-23] MEDS: METHYLPREDNISOLONE SOD SUCC 40 MG/ML VIAL IV SCH ×3 (05:52→22:26)
[2019-04-23 07:13] LABS: BASOPHILS % 0.2 % (0.0-2.0); HEMATOCRIT. 38.2 % (42.0-52.0); HEMOGLOBIN. 12.5 g/dL (14.0-18.0); LYMPHOCYTES % 8.6 % (20.0-50.0); MEAN CORPUSCULAR HEMOGLOBIN 29.5 pg (28.0-32.0); MEAN CORPUSCULAR VOLUME 90.3 fL (80.0-94.0); MEAN PLATELET VOLUME 7.7 fl (7.4-10.4); MONOCYTES % 5.6 % (2.0-8.0); NEUTROPHILS % 85.6 % (40.0-76.0); PLATELET 274 x1000/uL (130-400); RED BLOOD CELL COUNT 4.22 mill/uL (4.7-6.1); RED CELL DISTRIBUTION WIDTH 15.2 % (11.6-14.6)
[2019-04-23 07:34] LABS: CHLORIDE 100 mEq/L (98-107)
[2019-04-23] MEDS: NICOTINE 14MG PATCH TD SCH (08:32)
[2019-04-23] MEDS: AMLODIPINE 5MG TABLET PO SCH ×2 (08:32→22:28)
[2019-04-23] MEDS: FUROSEMIDE 40MG TABLET PO SCH (08:32)
[2019-04-23] MEDS: FAMOTIDINE 20MG TABLET PO SCH ×2 (08:32→22:27)
[2019-04-23] MEDS: ASPIRIN 81MG TABLET PO SCH (08:32)
[2019-04-23] MEDS: LEVETIRACETAM 500MG TABLET PO SCH ×2 (08:32→22:27)
[2019-04-23] MEDS: DOCUSATE SODIUM 250MG CAPSULE PO SCH (08:32)
[2019-04-23] MEDS: LEVOFLOXACIN 500MG TABLET PO SCH (12:35)
[2019-04-23] MEDS: IPRATROPIUM/ALBUTEROL 0.5-3(2.5)MG/3ML NEB HHN SCH ×3 (14:52→20:40)
[2019-04-23] MEDS: LATANOPROST 0.005% OPHTH DROPS 2.5ML EACHEYE SCH (21:00)
[2019-04-23] MEDS: ENOXAPARIN 30MG/0.3ML SYR SUBCUT SCH (22:27)
[2019-04-23] MEDS: TRAZODONE HCL 50MG TABLET PO SCH (22:27)
[2019-04-24] VITALS (18 sets, daily range): BP systolic 82–136; BP diastolic 53–78
[2019-04-24] MEDS: IPRATROPIUM/ALBUTEROL 0.5-3(2.5)MG/3ML NEB HHN SCH ×6 (00:47→21:17)
[2019-04-24] MEDS: BACLOFEN 10MG TABLET PO SCH ×3 (06:36→21:54)
[2019-04-24] MEDS: THEOPHYLLINE ANHYDROUS 80 MG/15 ML 120ML PO SCH ×3 (06:36→21:54)
[2019-04-24] MEDS: METHYLPREDNISOLONE SOD SUCC 40 MG/ML VIAL IV SCH (06:36)
[2019-04-24 07:04] LABS: CHLORIDE 99 mEq/L (98-107)
[2019-04-24 07:15] LABS: BASOPHILS % 0.2 % (0.0-2.0); HEMATOCRIT. 39.2 % (42.0-52.0); HEMOGLOBIN. 13.1 g/dL (14.0-18.0); LYMPHOCYTES % 8.9 % (20.0-50.0); MEAN CORPUSCULAR HEMOGLOBIN 29.9 pg (28.0-32.0); MEAN CORPUSCULAR VOLUME 89.9 fL (80.0-94.0); MEAN PLATELET VOLUME 7.4 fl (7.4-10.4); MONOCYTES % 3.8 % (2.0-8.0); NEUTROPHILS % 87.1 % (40.0-76.0); PLATELET 294 x1000/uL (130-400); RED BLOOD CELL COUNT 4.36 mill/uL (4.7-6.1)
[2019-04-24] MEDS: AMLODIPINE 5MG TABLET PO SCH ×2 (09:00→21:54)
[2019-04-24] MEDS: DOCUSATE SODIUM 250MG CAPSULE PO SCH (09:56)
[2019-04-24] MEDS: FAMOTIDINE 20MG TABLET PO SCH ×2 (09:56→21:54)
[2019-04-24] MEDS: ASPIRIN 81MG TABLET PO SCH (09:57)
[2019-04-24] MEDS: FUROSEMIDE 40MG TABLET PO SCH (09:57)
[2019-04-24] MEDS: LEVETIRACETAM 500MG TABLET PO SCH ×2 (09:57→21:54)
[2019-04-24] MEDS: NICOTINE 14MG PATCH TD SCH (09:58)
[2019-04-24] MEDS: LEVOFLOXACIN 500MG TABLET PO SCH (10:04)
[2019-04-24] MEDS ORDERED: GUAIFENESIN/CODEINE 100-10MG/5ML UDC PO PRN (12:00)
[2019-04-24] MEDS: FLUTICASONE PROPIONATE 50MCG/SPRAY BOTTLE BOTHNSTRLS SCH (13:20)
[2019-04-24] MEDS: MONTELUKAST SODIUM 10MG TABLET PO SCH (17:19)
[2019-04-24] MEDS: PREDNISONE 20MG TABLET PO SCH (17:20)
[2019-04-24] MEDS: LATANOPROST 0.005% OPHTH DROPS 2.5ML EACHEYE SCH (21:00)
[2019-04-24] MEDS: ENOXAPARIN 30MG/0.3ML SYR SUBCUT SCH (21:53)
[2019-04-24] MEDS: TRAZODONE HCL 50MG TABLET PO SCH (21:54)
[2019-04-25] VITALS (15 sets, daily range): BP systolic 97–129; BP diastolic 63–91
[2019-04-25] MEDS: FLUTICASONE PROPIONATE 50MCG/SPRAY BOTTLE BOTHNSTRLS SCH ×3 (00:09→21:03)
[2019-04-25] MEDS: IPRATROPIUM/ALBUTEROL 0.5-3(2.5)MG/3ML NEB HHN SCH ×6 (01:09→20:16)
[2019-04-25] MEDS: BACLOFEN 10MG TABLET PO SCH ×3 (06:20→21:46)
[2019-04-25] MEDS: THEOPHYLLINE ANHYDROUS 80 MG/15 ML 120ML PO SCH ×3 (06:20→21:46)
[2019-04-25] MEDS: PREDNISONE 20MG TABLET PO SCH ×2 (06:20→17:25)
[2019-04-25 08:50] LABS: BASOPHILS % 0.1 % (0.0-2.0); EOSINOPHILS % 0.1 % (0.0-5.0); HEMATOCRIT. 42.2 % (42.0-52.0); HEMOGLOBIN. 13.9 g/dL (14.0-18.0); LYMPHOCYTES % 12.3 % (20.0-50.0); MEAN CORPUSCULAR HEMOGLOBIN 29.8 pg (28.0-32.0); MEAN CORPUSCULAR VOLUME 90.6 fL (80.0-94.0); MEAN PLATELET VOLUME 7.2 fl (7.4-10.4); MONOCYTES % 2.1 % (2.0-8.0); NEUTROPHILS % 85.4 % (40.0-76.0); PLATELET 305 x1000/uL (130-400); RED BLOOD CELL COUNT 4.66 mill/uL (4.7-6.1); RED CELL DISTRIBUTION WIDTH 15.3 % (11.6-14.6)
[2019-04-25 09:02] LABS: CHLORIDE 99 mEq/L (98-107)
[2019-04-25] MEDS: ASPIRIN 81MG TABLET PO SCH (09:48)
[2019-04-25] MEDS: DOCUSATE SODIUM 250MG CAPSULE PO SCH (09:48)
[2019-04-25] MEDS: FUROSEMIDE 40MG TABLET PO SCH (09:48)
[2019-04-25] MEDS: FAMOTIDINE 20MG TABLET PO SCH (09:48)
[2019-04-25] MEDS: NICOTINE 14MG PATCH TD SCH (09:48)
[2019-04-25] MEDS: AMLODIPINE 5MG TABLET PO SCH ×2 (09:48→21:00)
[2019-04-25] MEDS: LEVETIRACETAM 500MG TABLET PO SCH ×2 (09:48→21:02)
[2019-04-25] MEDS: LEVOFLOXACIN 500MG TABLET PO SCH (10:34)
[2019-04-25] MEDS: MONTELUKAST SODIUM 10MG TABLET PO SCH (17:24)
[2019-04-25 19:37] LABS: BG BASE EXCESS 8.5 mmol/L (-2.0-2.0); BG CARBOXYHEMOGLOBIN 0.9 % (0.5-1.5); BG DEOXYHEMOGLOBIN 4.5 % (0.0-5.0); BG FRACTION INSPIRED OXYGEN 40; BG HCO3 ACT 34.9 mmol/L (22.0-26.0); BG METHEMOGLOBIN 0.2 % (0.0-1.5); BG OXYGEN SATURATION 95.4 % (92.0-98.5); BG OXYHEMOGLOBIN 94.4 % (94.0-97.0); BG PCO2 55.6 mmHg (35.0-45.0); BG PH 7.416 (7.350-7.450); BG PO2 77.8 mmHg (75.0-100.0); BG SAMPLE SITE RIGHT RADIAL; BG VENT MODE MASK - VENTI
[2019-04-25] MEDS: LATANOPROST 0.005% OPHTH DROPS 2.5ML EACHEYE SCH (21:00)
[2019-04-25] MEDS: ENOXAPARIN 30MG/0.3ML SYR SUBCUT SCH (21:02)
[2019-04-25] MEDS: TRAZODONE HCL 50MG TABLET PO SCH (21:02)
[2019-04-25] MEDS ORDERED: FAMOTIDINE 40MG TABLET PO SCH (21:39)
[2019-04-26] VITALS (7 sets, daily range): BP systolic 91–124; BP diastolic 57–73
[2019-04-26] MEDS: IPRATROPIUM/ALBUTEROL 0.5-3(2.5)MG/3ML NEB HHN SCH ×4 (00:31→12:54)
[2019-04-26] MEDS: BACLOFEN 10MG TABLET PO SCH (05:51)
[2019-04-26] MEDS: THEOPHYLLINE ANHYDROUS 80 MG/15 ML 120ML PO SCH (05:51)
[2019-04-26] MEDS: DOCUSATE SODIUM 250MG CAPSULE PO SCH (08:46)
[2019-04-26] MEDS: ASPIRIN 81MG TABLET PO SCH (08:46)
[2019-04-26] MEDS: PREDNISONE 20MG TABLET PO SCH (08:46)
[2019-04-26] MEDS: AMLODIPINE 5MG TABLET PO SCH (08:46)
[2019-04-26] MEDS: NICOTINE 14MG PATCH TD SCH (08:46)
[2019-04-26] MEDS: FUROSEMIDE 40MG TABLET PO SCH (08:46)
[2019-04-26] MEDS: LEVETIRACETAM 500MG TABLET PO SCH (08:46)
[2019-04-26] MEDS: FLUTICASONE PROPIONATE 50MCG/SPRAY BOTTLE BOTHNSTRLS SCH (08:46)
== END 2019-04-26 13:30 | DRG 189 ==
LOC: ER 11:30 → ENRESERV 21:10 → 3WST 22:34
PROVIDERS: ADMIT Internal Medicine Nephrology; ATTEND Internal Medicine Nephrology
PROC: 5A09357 Assistance with Respiratory Ventilation, Less than 24 Consecutive Hours, Continuous Positive Airway Pressure (ICD-10-PCS; principal; 2019-04-19)
PROC: 5A09357 Assistance with Respiratory Ventilation, Less than 24 Consecutive Hours, Continuous Positive Airway Pressure (ICD-10-PCS; 2019-04-20)
PROC: 5A09457 Assistance with Respiratory Ventilation, 24-96 Consecutive Hours, Continuous Positive Airway Pressure (ICD-10-PCS; 2019-04-21)
PROC: 5A09457 Assistance with Respiratory Ventilation, 24-96 Consecutive Hours, Continuous Positive Airway Pressure (ICD-10-PCS; 2019-04-23)
PROC: 5A09357 Assistance with Respiratory Ventilation, Less than 24 Consecutive Hours, Continuous Positive Airway Pressure (ICD-10-PCS; 2019-04-25)
DX: J96.21 Acute and chronic respiratory failure with hypoxia (principal); E87.4 Mixed disorder of acid-base balance; I50.22 Chronic systolic (congestive) heart failure; J20.9 Acute bronchitis, unspecified; J96.22 Acute and chronic respiratory failure with hypercapnia; I11.0 Hypertensive heart disease with heart failure; I27.81 Cor pulmonale (chronic); I50.810 Right heart failure, unspecified; F41.9 Anxiety disorder, unspecified; E11.9 Type 2 diabetes mellitus without complications; G40.909 Epilepsy, unspecified, not intractable, without status epilepticus; D64.9 Anemia, unspecified; F17.210 Nicotine dependence, cigarettes, uncomplicated; J43.9 Emphysema, unspecified; Z79.82 Long term (current) use of aspirin; Z99.81 Dependence on supplemental oxygen; Z88.8 Allergy status to other drugs, medicaments and biological substances
CPT/HCPCS: 36415; 36600; 71045; 80048; 80053; 80061; 81003; 82375; 82805; 82962; 83605; 83880; 84145; 84484; 85025; 87804; 93005; 93970; 94640; 94644; 94660; 99291; J1650; J1940; J1956; J2060; J2543; J2920; J2930; J3105; J3370; J7030; J7512; J7611; J7620